=== PATIENT | female | born 1945 | race Caucasian/White ===

== ENCOUNTER 2018-05-24 10:32 | Inpatient (IN) | payer MEDICARE, SELFPAY ==
[2018-05-02 09:34] VITALS: BMI 25.2
[2018-05-24] VITALS (15 sets, daily range): BP systolic 91–133; BP diastolic 51–76; PULSE 61–78; RESP 13–20; TEMP 35.7–36.4; O2SAT 91–99; BMI 24.9
--- NOTE | 2018-05-24 | DI.RAD.S_ITS ---
PROCEDURE: XR PELVIS 1-2V INDICATIONS: INTRA OPERATIVE LEFT HIP TECHNIQUE: Intra-operative view of the pelvis and hip acquired. COMPARISON: [facility], CR, XR HIP W PEL IF DONE LT 2V, 05/24/2018, 15:37. FINDINGS: Bones: Intraoperative devices prior to placement of left arthroplasty prostheses are in expected positions. No fractures or suspicious bony lesions. Incidentally noted right hip arthroplasty Soft tissues: Overlying surgical retractors are present, along with other intraoperative changes. IMPRESSION: Expected intraoperative appearance. Dictated by: Grabiel Daniel M.D. on 05/24/2018 at 16:01 Approved by: Grabiel Daniel M.D. on 05/24/2018 at 16:01
--- NOTE | 2018-05-24 | DI.RAD.S_ITS ---
PROCEDURE: XR HIP W PEL IF DONE LT 2V INDICATIONS: TOTAL LEFT HIP TECHNIQUE: AP pelvis and lateral view of the left hip acquired. COMPARISON: [facility], CR, XR PELVIS WITH BILATERAL LATERAL HIPS, 04/10/2018, 14:02. [facility], CR, XR PELVIS 1-2V, 05/24/2018, 14:25. FINDINGS: Bones: Patient is status post bilateral hip arthroplasty, with hardware components in expected positions. The hip joint appears congruent. The visualized bony structures appear intact. Soft tissues: Overlying postoperative changes are noted. No suspicious soft tissue densities. IMPRESSION: Status post bilateral hip arthroplasties, most recently on the left. Dictated by: Yvonne Garcia M.D. on 05/24/2018 at 16:11 Approved by: Yvonne Garcia M.D. on 05/24/2018 at 16:12
--- NOTE | 2018-05-24 11:04 | SUR.OPER ---
Lateral on padded OR bed. Gel axillary roll. Arms secured on padded armboard with pillow supporting top arm. Padded hip positioner braces x4 - anterior and posterior chest and pelvis. Additional gel pad used anterior pelvis. Gel pad under bottom leg from knee to foot and secured with tape over sheet.
[2018-05-24] MEDS: VANCOMYCIN 1,000 MG/200 ML FROZ.PIGGY 200 MG IV (11:42)
[2018-05-24] MEDS: LACTATED RINGERS 1,000 ML 42 ML IV ×2 (11:43→14:56)
[2018-05-24] MEDS: PREGABALIN 75 MG CAPSULE PO (12:13)
[2018-05-24] MEDS: ACETAMINOPHEN 325 MG TABLET 975 MG PO ×2 (12:13→21:28)
[2018-05-24] MEDS: CELECOXIB 200 MG CAPSULE PO (12:13)
--- NOTE | 2018-05-24 13:05 | PM.PREOP ---
Pre-operative Note Interval Note Pre-op Check: History & Physical Reviewed by Physician and Exam Performed
--- NOTE | 2018-05-24 13:05 | PM.OP.1 ---
Operative Date/Time/Diagnoses Date of procedure: 05/24/18 Time of procedure: 13:31 Pre-op diagnosis: Left hip avascular necrosis with osteoarthritis Post-op diagnosis: same Procedure & Clinicians Procedure: Left total hip arthroplasty Same procedure as scheduled: Yes Indications: The patient has had progressively worsening left hip pain with radiographic changes consistent with arthritis. Non-operative management has failed and the patient has requested total hip replacement. The risks, benefits and alternatives to surgery were discussed with the patient prior to proceeding. Risks discussed included, but were not limited to, failure to relieve pain, leg length discrepancy, dislocation, stiffness, infection, nerve damage, deep venous thrombosis, pulmonary embolism, stroke, coma, heart attack, permanent paralysis and , as well as the potential need for eventual revision of the prosthetic. Surgeon: Mandy Cuevas Reed Press Feeder: Betty Torre Anesthesia Type: General Operative Notes Findings: Severe left hip osteoarthritis, adequate stability Closure Type: primary Specimen(s): none sent Implants & Drains: R3 54 mm cup with a neutral poly liner, size 8 standard offset anthology, -3 head Estimated Blood Loss (mL): 300 Blood products transfused: none Procedure in detail: The patient was brought to the operating room. Patient was carefully positioned in the supine position. Time-out was performed and antibiotics were given. Anesthesia was induced. The patient was seen in the pre-operative area, where the patient identified the left hip as the operative site and this was marked with my initials. The patient received pre-operative antibiotics and was taken to the operating room and placed on the operative table in the right lateral decubitus position after satisfactory anesthesia. A multimedia specialist out was performed. The left leg was prepared from the ankle to the iliac crest with ChloroPrep in the usual fashion and draped through sterile drapes. The hip was approached through an approximately 20 cm incision centered over the greater trochanter and curving gently posteriorly as it went proximally. This was carried sharply to the fascia matt, which was divided and retracted with a self retaining retractor. The trochanteric bursa was excised with care being taken to avoid the sciatic nerve, which was identified and protected throughout the case. The short external rotators were incised and the capsulomuscular flap was raised and tagged for later repair. The hip was dislocated, and a femoral neck osteotomy performed approximately 15 mm above the lesser trochanter. Retractors were placed around the femur. The canal was opened with a box cutting osteotome, followed by a T handled reamer and a lateralizing reamer. The chili pepper broach was then used, followed by sequential broaching until there was good stability of the broach in the femur. Retractors were placed to expose the acetabulum. The labrum and central soft tissues were removed. Reaming was performed initially going up in 2 mm increments, then 1 mm increments until good bite was obtained with an odd sized reamer. The cup 1 mm larger than the last reamer was then inserted using the appropriate anteversion guides. A trial neutral liner was placed. The broach was placed in the canal. A trial head and neck were then placed and the hip relocated and checked for leg length and stability. An intraoperative film confirmed the component position and no evidence of fracture. The patient was stable in the position of sleep, of squatting, and could be put through a range of motion with 45 degrees internal rotation without dislocation. At 90 degrees flexion, internal rotation to 70 was possible before dislocation. This was felt to be satisfactory and the appropriate components were opened, and the trials were removed. The acetabular liner was impacted into position. The final stem was then impacted into the prepared femoral canal. A brief Betadine soak was performed while trialing with head options. The hip was meticulously irrigated with normal saline. Finally the femoral head was impacted onto the stem. The acetabulum was cleared of all material and the hip relocated one final time. The capsulomuscular flap was then repaired to the greater trochanter though an awl hole using the tag sutures. The short external rotators were repaired with a black braided nylon. A deep drain was placed and brought out anteriorly. The fascia matt was closed with black braided nylon. The subcutaneous layer was closed with barbed sutures and SteriStrips. An Aquacel Ag dressing was applied and the patient was taken to recovery having tolerated the procedure well. Complications: none Condition: stable Disposition: Acute Care Plan for aftercare: The patient will be maintained on a standard total hip replacement protocol with weight bearing as tolerated and posterior hip precautions. The patient will receive aspirin and sequential compression devices for DVT prophylaxis. The patient will be discharged home when safe for the home environment.
[2018-05-24] MEDS: CEFAZOLIN 2 GM/100 ML FROZ.PIGGY IV ×2 (13:07→21:27)
--- NOTE | 2018-05-24 14:02 | SUR.OPER ---
UPON INITIAL INSPECTION OF PATIENT IT WAS NOTED THAT SHE HAD GREENISH AND BLUISH PURPLE DISCOLORED BRUISING ON UPPER EXREMITIES AND LOWER EXTREMITIES WELL SOME HEALING SCRAPES TO LEFT LOWER BACK AND HIP PRIOR TO INCISION. PATIENT STATED SHE FELL A COUPLE OF WEEKS AGO
[2018-05-24] MEDS: BUPIVACAINE 0.25% W/ EPI VIAL 50 ML INJ (14:16)
[2018-05-24] MEDS: BUPIVACAINE LIPOSOME 266 MG/20 ML VIAL INJ (14:16)
[2018-05-24] MEDS: SODIUM CHLORIDE IRRIG SOLUTION 250 ML, EPINEPHrine 1 MG IRR (14:47)
[2018-05-24] MEDS: POVIDONE-IODINE 15 ML, SODIUM CHLORIDE 0.9% 250 ML TOP (15:00)
--- NOTE | 2018-05-24 15:30 | CM.DANOTE ---
Call from BLAIR/Betty: Patient left message stating she will require SNF at discharge. Notified PA that patient will be assessed tomorrow for discharge planning needs.
[2018-05-24] MEDS: SODIUM CHLORIDE 0.9% 1,000 ML 100 ML IV (18:44)
[2018-05-24] MEDS: AMITRIPTYLINE 25 MG TABLET PO (21:28)
[2018-05-24] MEDS: ASPIRIN EC 81 MG TABLET PO (21:28)
[2018-05-24] MEDS: DOCUSATE 100 MG CAPSULE PO (21:28)
[2018-05-24] MEDS: OXYCODONE/ACETAMINOPHEN 5/325 TABLET 1 TAB PO (23:22)
[2018-05-25] VITALS (13 sets, daily range): BP systolic 102–141; BP diastolic 53–69; PULSE 56–77; RESP 15–16; TEMP 36–36.7; O2SAT 93–100
--- NOTE | 2018-05-25 04:12 | PC.NURSE ---
[place] Supervisor- Pt slept well throughout night, Voided at change of shift, scant amount of urine on bedpan. At 0245, voided qs, passed small amount of flatus. Left hip aquacel dressing CDI, CMS +, PPP. Left hemovac drain in place. Ice pack on/off throughout night. Hip precautions in place and instructed to pt. Also instructed use of incentive spirometer and pt able to return demonstrate. IVF infusing well to left FA PIV. O2 sat 98-100% on 2L NC, weaned to 1L NC, remained on continuous O2 monitoring throughout night. Rates 4/10 aching/soreness to left hip area, Percocet prn given X1 at 2330 with good effect. High fall risk precautions in place, bed alarm on.
[2018-05-25] MEDS: SODIUM CHLORIDE 0.9% 1,000 ML 100 ML IV (05:11)
[2018-05-25] MEDS: CEFAZOLIN 2 GM/100 ML FROZ.PIGGY IV (05:11)
[2018-05-25] MEDS: OXYCODONE/ACETAMINOPHEN 5/325 TABLET 1 TAB PO (05:16)
[2018-05-25 05:28] LABS: Hematocrit 28.1 % (36-46); Hemoglobin 9.4 g/dL (12.0-16.0)
[2018-05-25] MEDS: DOCUSATE 100 MG CAPSULE PO ×2 (08:33→20:07)
[2018-05-25] MEDS: ASPIRIN EC 81 MG TABLET PO ×2 (08:33→20:07)
[2018-05-25] MEDS: LISINOPRIL 20 MG TABLET PO (08:35)
[2018-05-25] MEDS: ACETAMINOPHEN 325 MG TABLET 975 MG PO ×3 (08:36→21:42)
[2018-05-25] MEDS: OXYCODONE IR 5 MG TABLET PO ×5 (08:41→22:33)
--- NOTE | 2018-05-25 09:37 | PM.PNPO.1 ---
Subjective Date Patient Seen: 05/25/18 Time Patient Seen: 09:37 Interval history: Pt in bed. Pain tolerable with pain medications. S/P LT NAT by Dr. Cuevas. PD 1. Confusion about if patient wanted to go to SNF after d/c form hospital or not. Patient lives alone but has friends around. Hx of RT NAT years ago. Pt feels that she can go home in few days and does nto need a SNF. Exam Vital Signs (past 8 hours): - 05/25/18 04:16 05/25/18 04:22 05/25/18 04:40 Temperature Pulse Rate Respiratory Rate Blood Pressure Pulse Oximetry 100 99 97 05/25/18 05:20 05/25/18 05:59 05/25/18 06:19 Temperature 96.8 F L Pulse Rate 56 L Respiratory Rate 16 Blood Pressure 102/56 L Pulse Oximetry 96 98 95 05/25/18 08:10 Temperature 97.3 F L Pulse Rate 60 Respiratory Rate 16 Blood Pressure 110/61 Pulse Oximetry 97 Oxygen Delivery Method Room Air Oxygen Flow Rate 0 Narrative Exam Narrative: Pt in bed. A&O x3. Appears comfortable. Hemovac drain in. Left hip Aquacel dressing clean, dry and intact. Full sensation in left leg and foot. Mod swelling in left thigh. 5/5 left ankle strength. Objective Labs Result Diagrams: 05/25/18 05:12 Labs: Laboratory Results - last 24 hr 05/25/18 05:12 Hgb 9.4 L Hct 28.1 L Assessment & Plan Post-op (1) Postoperative anemia due to acute blood loss: Problem details: Iron and Vt C ordered. tomorrow to monitor. Current Visit: Yes Status: Acute Postoperative Procedures Operation Date: 05/24/18 12:15 Actual Procedures Side Surgeon p Total Hip Arthroplasty Left Mandy Cuevas MD S/P LT NAT. PD 1. Pt to amabulate with PT today. Continue pain medication as needed. DVT prophylaxis with ASA and SCDs. Possible home in the next day or two. [facility] patient and has d/c medications already. Time Spent With Patient less than 15 minutes Quality VTE Deep Vein Thrombosis/Pulmonary Embolism Present on Admission: No
--- NOTE | 2018-05-25 09:55 | PT.IPTN ---
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) Presence of right artificial hip joint (05/24/18) Surgery Performed Operation Date: 05/24/18 12:15 Actual Procedures p Total Hip Arthroplasty(Left) - Mandy Cuevas MD Physical Therapy Treatment Note M2 PT-IP Current Condition Start: 05/25/18 12:34 Freq: NEEDED Status: Active Protocol: Document 05/25/18 09:55 AB (Rec: 05/25/18 13:15 AB [id number]) Physical Therapy Current Condition Current Condition Evaluation Date 05/25/18 Treatment Diagnosis s/p L NAT Onset Date 05/24/18 Precautions Posterior Hip Precautions No Hip Flexion > 90 degrees No Hip Internal Rotation No Hip Adduction Other Precautions falls Weight Bearing Status Weight Bearing Status Weight Bear as Tolerated M3 PT-IP Subjective Start: 05/25/18 12:34 Freq: NEEDED Status: Active Protocol: Document 05/25/18 09:55 AB (Rec: 05/25/18 13:15 AB [id number]) Subjective Physical Therapy Visit Type Type Initial Evaluation Visit Start Time 09:55 Visit Stop Time 10:45 Total Visit Minutes 50 Number of COAL CARRIER Visits 0 Physical Therapy Visit Comments Patient Comments pt agreeable to do therapy Therapy Pain Assessment Pain When Pain Assessed During Mobility Pain Present Pain Present Pain Reported Location Left Hip Intensity 4 Scale Used Numeric (1 - 10) Pain Management Techniques Apply Cold Timing of Activity with Medications M4 PT-IP Mobility and Gait Start: 05/25/18 12:34 Freq: NEEDED Status: Active Protocol: Document 05/25/18 09:55 AB (Rec: 05/25/18 13:15 AB [id number]) PT-Bed Mobility Assessment Rolling Level of Assist Contact Guard Assistance Supine to Sit Supine to Sit Contact Guard Assistance PT-Transfer Assessment Sit to and From Stand Sit to and from Stand Minimal Assistance Equipment Transfer Assistive Device Gait Belt Front Wheeled Walker Transfers Transfer Destination Chair Toilet Transfer Technique pt ambulated to the toilet and to chair Transfer Ability Level of Assist Minimal Assistance Moderate Assistance 1 Person Assistance Gait Assessment Gait Gait Assistance Required: Minimum Assistance Moderate Assistance Distance (Feet) (feet) 20 Able to Maintain Weight Bearing Status Yes During Gait Assistive Devices Assistive Device Gait Belt Front Wheeled Walker Orthotic/Prosthetic Devices or Brace: No Gait Deviations General Gait Pattern Antalgic Decreased Stride Length Decreased Feet Clearance Flexed Trunk Step-to Gait Factors Limiting Gait Function Factors Limiting Gait Function Decreased Activity Tolerance Decreased Strength Limited Range of Motion Pain Poor Balance Poor Safety Awareness Comments Gait Comments pt with increase L knee flexion and internal rotation during standing and ambulation . Requires max cues for safety and to adhere to hip precautions PT-Balance Assessment Sitting Balance and Reactions Static Sitting Balance Ability Good Dynamic Sitting Balance Ability Good Standing Balance and Reactions Static Standing Balance Ability Fair Dynamic Standing Balance Ability Fair Device Used FWW M5 PT-IP Objective Assessments Start: 05/25/18 12:34 Freq: NEEDED Status: Active Protocol: Document 05/25/18 09:55 AB (Rec: 05/25/18 13:15 AB [id number]) Orientation Orientation/Cognition Level of Alertness Alert Orientation Name Age Birthday Month Date Year Day of Week Place Situation Language Function Ability Hard of Hearing Safety Awareness Decreased Safety Awareness Memory Description Short Term Impaired Expeller Operator Impaired Gross Range of Motion Lower Extremity ROM Assessment Bilaterally Impaired Impairments decrease bialteral knee extension Strength Lower Extremity Strength Assessment Bilaterally Impaired Hip 4-/5 Knee 4-/5 M6 PT-IP Treatment Start: 05/25/18 12:34 Freq: NEEDED Status: Active Protocol: Document 05/25/18 09:55 AB (Rec: 05/25/18 13:15 AB [id number]) Physical Therapy Treatment Education Education Provided Precautions Weight Bearing Status Post-Op Packet Safety Other Treatments Other Treatment Performed pt continues to require cues to maintain hip precuations despite education provided. M7 PT-IP Assessment and Plan Start: 05/25/18 12:34 Freq: NEEDED Status: Active Protocol: Document 05/25/18 09:55 AB (Rec: 05/25/18 13:15 AB [id number]) PT Summary Assessment and Plan Potential Rehabilitation Potential Fair Status of Condition at Evaluation Evolving Summary Impairments Pain ROM Strength Balance Coordination Sensation Tone Cognition Bed Mobility Transfers Gait Activity Tolerance Assessment Summary pt requires 1 person assist with mobility and max cues for safety. pt does not have a constant person assist her at home and at this time require 24/7 assist with all tasks. pt may require SNF rehab. Goals Bed Mobility Goal Standby Assistance Transfer Goal Standby Assistance Front Wheeled Walker Gait Goal Standby Assistance Front Wheel Walker Gait Distance 100 Other Goals up/down 2 steps using R rail ascending SBA Days to Meet Goals 3 Frequency of Treatment Frequency Of Treatment Twice a Day Treatment Plan Physical Therapy Treatment Plan Bed Mobility Training Transfer Training Gait Training Therapeutic Exercise Balance Retraining Post Op Education Discharge Planning Hot or Cold Pack Neuromuscular Re-ed Coordination Retraining Manual Therapy Other Recommendations and Next Treatment ambulation, hip precaution Focus education, stair climbing Recommendations To Nursing Amount of Assist Needed 1 Person Assist Discharge Recommendations PT Discharge Recommendations Home with 04/06 Assist Home Health SNF Rehab Outpatient PT Other Discharge Recommendations SNF vs 24 assist/ outpt PT/ homehealth PT
[2018-05-25] MEDS: ASCORBIC ACID 500 MG TABLET PO (10:10)
[2018-05-25] MEDS: FERROUS SULFATE 325 MG TABLET PO (10:10)
--- NOTE | 2018-05-25 12:39 | PT.IPTN ---
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) Presence of right artificial hip joint (05/24/18) Surgery Performed Operation Date: 05/24/18 12:15 Actual Procedures p Total Hip Arthroplasty(Left) - Mandy Cuevas MD Physical Therapy Treatment Note M2 PT-IP Current Condition Start: 05/25/18 12:34 Freq: NEEDED Status: Active Protocol: Document 05/25/18 09:55 AB (Rec: 05/25/18 13:15 AB [id number]) Physical Therapy Current Condition Current Condition Evaluation Date 05/25/18 Treatment Diagnosis s/p L NAT Onset Date 05/24/18 Precautions Posterior Hip Precautions No Hip Flexion > 90 degrees No Hip Internal Rotation No Hip Adduction Other Precautions falls Weight Bearing Status Weight Bearing Status Weight Bear as Tolerated M3 PT-IP Subjective Start: 05/25/18 12:34 Freq: NEEDED Status: Active Protocol: Document 05/25/18 13:16 AB (Rec: 05/25/18 13:25 AB [id number]) Subjective Physical Therapy Visit Type Type Treatment Note Visit Start Time 12:39 Visit Stop Time 12:57 Total Visit Minutes 18 Number of OCEAN EXPORT COORDINATOR Visits 0 Physical Therapy Visit Comments Patient Comments pt requested to use the toilet and go back to bed Therapy Pain Assessment Pain When Pain Assessed At Rest Pain Present Pain Present Pain Reported Location Left Hip Intensity 3 Scale Used Numeric (1 - 10) Pain Management Techniques Apply Cold Re-positioning M4 PT-IP Mobility and Gait Start: 05/25/18 12:34 Freq: NEEDED Status: Active Protocol: Document 05/25/18 13:16 AB (Rec: 05/25/18 13:25 AB [id number]) PT-Bed Mobility Assessment Sit to Supine Sit to Supine Standby Assistance PT-Transfer Assessment Sit to and From Stand Sit to and from Stand Minimal Assistance Moderate Assistance Equipment Transfer Assistive Device Gait Belt Front Wheeled Walker Orthotic/Prosthetic Devices or Brace: No Gait Assessment Gait Gait Assistance Required: Minimum Assistance Distance (Feet) (feet) 25 Able to Maintain Weight Bearing Status Yes During Gait Assistive Devices Assistive Device Gait Belt Front Wheeled Walker Orthotic/Prosthetic Devices or Brace: No Gait Deviations General Gait Pattern Antalgic Decreased Stride Length Decreased Feet Clearance Flexed Trunk Step-to Gait Factors Limiting Gait Function Factors Limiting Gait Function Decreased Activity Tolerance Decreased Strength Difficulty Following Directions Pain Poor Balance Poor Safety Awareness Comments Gait Comments pt ambulated towards the bed and midway stated that she needs to use the toilet and ambulated towards the toilet ~ 20 ft using FWW min A. pt required mod A for controlled descent to the toilet and max cues for maintain hip precautions. pt required mod A for sit to stand from the toilet using grab bars. pt ambulated towards the sink using FWW min A. M5 PT-IP Objective Assessments Start: 05/25/18 12:34 Freq: NEEDED Status: Active Protocol: Document 05/25/18 09:55 AB (Rec: 05/25/18 13:15 AB [id number]) Orientation Orientation/Cognition Level of Alertness Alert Orientation Name Age Birthday Month Date Year Day of Week Place Situation Language Function Ability Hard of Hearing Safety Awareness Decreased Safety Awareness Memory Description Short Term Impaired Group Home Impaired Gross Range of Motion Lower Extremity ROM Assessment Bilaterally Impaired Impairments decrease bialteral knee extension Strength Lower Extremity Strength Assessment Bilaterally Impaired Hip 4-/5 Knee 4-/5 M6 PT-IP Treatment Start: 05/25/18 12:34 Freq: NEEDED Status: Active Protocol: Document 05/25/18 13:16 AB (Rec: 05/25/18 13:25 AB [id number]) Physical Therapy Treatment Other Treatments Other Treatment Performed reviewed hip precautions again and pt continues to require max cues M7 PT-IP Assessment and Plan Start: 05/25/18 12:34 Freq: NEEDED Status: Active Protocol: Document 05/25/18 13:16 AB (Rec: 05/25/18 13:25 [id number]) PT Summary Assessment and Plan Potential Rehabilitation Potential Fair Summary Impairments Pain ROM Strength Balance Coordination Sensation Tone Cognition Bed Mobility Transfers Gait Activity Tolerance Progress Towards Goals Slow Progress due to Medical Issues Slow Progress due to Activity Tolerance Assessment Summary pt requiring one person assist with mobility and max cues for safety and to maintain hip precautions. at this time pt requires 24/7 assistance and may require SNF rehab. Goals Bed Mobility Goal Standby Assistance Transfer Goal Standby Assistance Front Wheeled Walker Gait Goal Standby Assistance Front Wheel Walker Gait Distance 100 Other Goals up/down 2 steps using R rail ascending SBA Days to Meet Goals 3 Frequency of Treatment Frequency Of Treatment Twice a Day Treatment Plan Physical Therapy Treatment Plan Bed Mobility Training Transfer Training Gait Training Therapeutic Exercise Balance Retraining Post Op Education Discharge Planning Hot or Cold Pack Neuromuscular Re-ed Coordination Retraining Manual Therapy Other Recommendations and Next Treatment ambulation, hip precaution Focus education, stair climbing Recommendations To Nursing Amount of Assist Needed 1 Person Assist Discharge Recommendations PT Discharge Recommendations Home with 24/ Assist Home Health SNF Rehab Outpatient PT Other Discharge Recommendations SNF vs 04/06 assist/ outpt PT/ homehealth PT
--- NOTE | 2018-05-25 15:45 | OT.IP.EVAL ---
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) Presence of right artificial hip joint (05/24/18) Surgery Performed Operation Date: 05/24/18 12:15 Actual Procedures p Total Hip Arthroplasty(Left) - Mandy Cuevas MD Past Medical History (Last Updated 05/25/18 @ 09:41 by Betty Torre PA-C) Postoperative anemia due to acute blood loss (Acute) HTN (hypertension) (Acute) Surgical History (Last Reviewed 05/24/18 @ 09:20 by Betty Lynch RN) History of arthroplasty of right hip (Acute) History of bilateral knee arthroplasty (Acute) Hx of tonsillectomy (Acute) Occupational Therapy Inpatient Evaluation/Re-Eval M1 PT/OT-IP Prior Functional Status Start: 05/25/18 12:34 Freq: NEEDED Status: Active Protocol: Document 05/25/18 09:55 AB (Rec: 05/25/18 13:15 AB [id number]) Medical Review Prior Functional Status Medical History Reviewed Yes Communication able to make needs known Mobility and Gait pt staed that she is independent with all mobilities and ambulation without AD but has been using a FWW for 2-4 weeks due to hip pain Social History Household Members none Living Arrangements House Number of Floors (Floors) One Floor Number of Stairs To Enter/Railing? 2 steps to enter with R rail ascending Home Environment Standard Height Toilet Tub/Shower Home Equipment Front Wheel Walker Quad Cane Straight Cane Raised Toilet Seat Without Armrests Hand Held Shower Grab Bars In Shower Employment Status Retired Additional Social History Comment pt stated that she has friends and neighbors that will assist her at home and if needed, somebody can stay with her. M2 OT-IP Current Condition Start: 05/25/18 15:20 Freq: Status: Active Protocol: Document 05/25/18 02:55 ADH (Rec: 05/25/18 15:26 ADH [email or web address]) Occupational Therapy Current Condition Current Condition Evaluation Date 05/25/18 Treatment Diagnosis L total hip Diagnosis Onset Date 05/24/18 Post Operative Precautions Posterior Hip Precautions No Hip Flexion > 90 degrees No Hip Internal Rotation No Hip Adduction Other Precautions falls Weight Bearing Status Weight Bearing Status Weight Bear as Tolerated M3 OT- IP Subjective and Pain Start: 05/25/18 15:20 Freq: Status: Active Protocol: Document 05/25/18 02:55 ADH (Rec: 05/25/18 15:26 ADH [email or web address]) OT- Subjective Occupational Therapy Visit Type Type Initial Evaluation Visit Start Time 02:08 Visit Stop Time 02:55 Total Visit Minutes 47 OT Pain Assessment Pain When Pain Assessed During Mobility Pain Present Pain Present Denied Pain M4 OT- IP ADL's Start: 05/25/18 15:20 Freq: Status: Active Protocol: Document 05/25/18 02:55 ADH (Rec: 05/25/18 15:26 ADH [email or web address]) OT [id number] General Evaluation Self-Feeding Ability Independent OT ADL-Grooming General Evaluation Grooming Ability Independent OT ADL-Oral Care General Eval Oral Care Ability Independent OT ADL-Dressing General Eval Upper Body Dressing Ability Independent Lower Body Dressing Ability Maximum Assistance Areas Needing Assistance Underpants/Brief Socks Shoes Comments OT Dressing Comments Pt unable to perform LB dressing d/t posterior hip precautions, will need adaptive equipment. Pt reports having some at home, provided shoe horn. Pt with good verbal understanding of techniques r/t same surgery on other hip 6 years prior. OT ADL-Toileting General Evaluation Toileting Ability Standby Assistance M5 OT- IP IADL's Start: 05/25/18 15:20 Freq: Status: Active Protocol: Document 05/25/18 02:55 ADH (Rec: 05/25/18 15:45 ADH [email or web address]) OT-Instrumental Activities of Daily Living Driving Driving Comments Pt recommended to hold off on driving until cleared by . M6 OT- IP Functional Cognition Start: 05/25/18 15:20 Freq: Status: Active Protocol: Document 05/25/18 02:55 ADH (Rec: 05/25/18 15:26 ADH [email or web address]) Cognitive Factors Limiting Selfcare Function Cognitive Ability Level of Alertness Alert Patient Orientation Name Date Place Situation Attention Span Ability Capable of Focused Attention Ability to Follow Commands Able to Follow Multi-Step Commands Safety Awareness Decreased Recall of Precautions Decreased Ability to Apply Precautions Underestimates Need for Assistance Cognitive Comments Cognitive Assessment Comments Pt able to recall 2/3 posterior hip precautions. Pt with poor understanding of hip precautions as they related to her familiar movements, she kept stating but I am so used to leaning forward! and had difficulty problem solving a new movement pattern. Pt tends to downplay current needs and dismiss therapist's concerns re: functional transfers in the home. OT- Vision and Hearing OT- Hearing Assessment OT- Hearing Assessment WFL OT- Vision Assessment Visual Acuity Glasses For Reading M7 OT- IP Mobility and Balance Start: 05/25/18 15:20 Freq: Status: Active Protocol: Document 05/25/18 02:55 ADH (Rec: 05/25/18 15:26 ADH [email or web address]) OT- Bed Mobility Assessment Rolling Level of Assistance Minimal Assistance Supine to Sit Supine to Sit Assist Contact Guard Assistance Sit to Supine Sit to Supine Assist Contact Guard Assistance Scooting Scooting to Edge of Bed Contact Guard Assistance Scooting Up and Down in Bed Contact Guard Assistance OT-Transfer Assessment Sit to and From Stand Sit to and from Stand Minimal Assistance Technique Transfer Destination Bed Chair Toilet Devices Transfer Assistive Devices Gait Belt Front Wheeled Walker Comments Mobility Comments Once on her feet pt needed max cues for correct gait pattern , continues to carry L foot high and only push off on toes . M8 OT- IP Objective Assessments Start: 05/25/18 15:20 Freq: Status: Active Protocol: Document 05/25/18 02:55 ADH (Rec: 05/25/18 15:45 ADH [email or web address]) OT Gross Range of Motion Upper Extremity Range of Motion Assessment Within Functional Limits OT Strength Upper Extremity Strength Assessment Within Functional Limits OT- Coordination Assessment Upper Extremity Finger Tapping Test Within Functional Limits M9 OT- IP Assessment and Plan Start: 05/25/18 15:20 Freq: Status: Active Protocol: Document 05/25/18 02:55 ADH (Rec: 05/25/18 15:45 ADH [email or web address]) OT Summary Assessment and Plan Potential Rehabilitation Potential Excellent Analytic Complexity at Evaluation Low Summary OT Impairments Pain Range of Motion Progress Towards Goals Progressing Toward Goals Treatment Plan OT Treatment Plan ADL Training Functional Mobility Patient/Family Education Discharge Planning Discharge Recommendations OT Discharge Recommendations Home with Assistance
--- NOTE | 2018-05-25 16:44 | CM.DANOTE ---
DCP/Assessment: Reviewed chart this AM. Patient is a 73yr old female admitted to . for elective left NAT performed on 05-24-[address] Cuevas. PCP not listed. Primary payor is 1)[facility]/Medicare. Received fax from payor requesting d/c planning evaluation prior to patient's discharge from I.. COUNTER HAND met patient briefly today to discuss d/c plan. Patient had not yet been evaluated by therapy. Patient reports that she plans to go home at time of d/c. Patient indicates that she has outpatient therapy arranged to begin on Sunday05-29-18. Notified patient of concern from payor re: d/c plan. Patient reports that her neighbor probably called the orthopedic office concerned that she would be discharged too soon? Patient reports that she does live alone [place] and that she does not have any concerns about returning home. Notified patient that no discharge ordered for today and that CM team would follow up on 05-26-18. P: Pending. Anticipate possible home with HH vs. SNF. CM meat service team member to call [facility] [employer] Driver with d/c plan when available. Contact is: Tawanna Birdshaquille # [phone]. JEB Velazco Discharge Planning/Care Management CM Discharge Assessment Start: 05/25/18 16:41 Freq: Status: Active Protocol: Document 05/25/18 16:41 KJS (Rec: 05/25/18 16:44 KJS [id number]) Discharge Planning Assessment Assigned Hospitalist Physician JEB/Gladys History Provided By Patient Has Patient been admitted in last 30 No days? Prior Living Arrangements House Household Members none Is patient alert and oriented? Yes Caregiver for Another No DME Already Rented / Owned FWW / Walker Community Services Needed at Discharge Physical Therapy Review Status In Process Next Review Type Continued Stay Review
[2018-05-25] MEDS: SODIUM CHLORIDE 0.9% FLUSH 10 ML IV ×2 (20:09→23:30)
[2018-05-25] MEDS: AMITRIPTYLINE 25 MG TABLET PO (21:42)
[2018-05-26 01:10] VITALS: BP 127/63; PULSE 84; RESP 14; TEMP 36.7; O2SAT 96
[2018-05-26] MEDS: OXYCODONE IR 5 MG TABLET PO ×7 (01:24→23:35)
[2018-05-26 05:48] LABS: Hematocrit 28.4 % (36-46); Hemoglobin 9.4 g/dL (12.0-16.0)
[2018-05-26 06:02] VITALS: BP 138/78; PULSE 90; RESP 16; TEMP 36.8; O2SAT 96
--- NOTE | 2018-05-26 06:15 | PC.NURSE ---
Supervisor Sewer System- Pt slept on/off throughout night, repositioned frequently. Stated having mid back pain from being in bed so much. Warm blanket given, repositioning, and medicated with prn Oxycodone at 0130 & 0450. Pt c/o left hip aching 3/10, ice applied on/off. CMS+, 2+ edema noted to left thigh and hip area. Left hip aquacel dressing covering surgical site CDI. Gauze and tegaderm dressing covering old hemovac site CDI. Calf SCD's replaced for night to BLE. No other voiced concerns, call light with in reach. High fall risk precautions in place.
[2018-05-26 08:31] VITALS: BP 112/63; PULSE 79; RESP 14; TEMP 36.4; O2SAT 95
[2018-05-26] MEDS: ASCORBIC ACID 500 MG TABLET PO (08:48)
[2018-05-26] MEDS: ASPIRIN EC 81 MG TABLET PO ×2 (08:48→20:22)
[2018-05-26] MEDS: FERROUS SULFATE 325 MG TABLET PO (08:49)
[2018-05-26] MEDS: ACETAMINOPHEN 325 MG TABLET 975 MG PO ×3 (08:49→20:22)
[2018-05-26] MEDS: DOCUSATE 100 MG CAPSULE PO ×2 (08:49→20:21)
--- NOTE | 2018-05-26 09:49 | PC.NURSE ---
Cee anticipates being released to home later today to care of friends. She is taking oxycodone for pain PRN and scheduled acetaminophen. She is performing with PT. VSS. Rachna de los santos. clean/dry/intact.
--- NOTE | 2018-05-26 11:06 | PM.PN.1 ---
Exam Vital Signs (past 8 hours): - 05/26/18 06:02 05/26/18 08:31 Temperature 98.2 F 97.5 F L Pulse Rate 90 79 Respiratory Rate 16 14 Blood Pressure 138/78 H 112/63 Pulse Oximetry 96 95 Oxygen Delivery Method Room Air Oxygen Flow Rate 0 Objective Labs Result Diagrams: 05/26/18 05:00 Labs: Laboratory Results - last 24 hr 05/26/18 05:00 Hgb 9.4 L Hct 28.4 L Assessment & Plan Plan: Assessment/Plan Narrative: Patient is admitted after surgery. Patient has been stable and progressing with physical therapy. Patient is neurovascularly intact on exam. Patient has no signs or symptoms of DVT. Patient's dressing is clean dry and intact. Will continue PT training and possible d/c tomorrow. Quality VTE Deep Vein Thrombosis/Pulmonary Embolism Present on Admission: No
--- NOTE | 2018-05-26 11:49 | PT.IPTN ---
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) Presence of right artificial hip joint (05/24/18) Surgery Performed Operation Date: 05/24/18 12:15 Actual Procedures p Total Hip Arthroplasty(Left) - Mandy Cuevas MD Physical Therapy Treatment Note M2 PT-IP Current Condition Start: 05/25/18 12:34 Freq: NEEDED Status: Active Protocol: Document 05/25/18 09:55 AB (Rec: 05/25/18 13:15 AB [id number]) Physical Therapy Current Condition Current Condition Evaluation Date 05/25/18 Treatment Diagnosis s/p L NAT Onset Date 05/24/18 Precautions Posterior Hip Precautions No Hip Flexion > 90 degrees No Hip Internal Rotation No Hip Adduction Other Precautions falls Weight Bearing Status Weight Bearing Status Weight Bear as Tolerated M3 PT-IP Subjective Start: 05/25/18 12:34 Freq: NEEDED Status: Active Protocol: Document 05/26/18 10:57 CLB (Rec: 05/26/18 11:49 CLB [id number]) Subjective Physical Therapy Visit Type Type Treatment Note Visit Start Time 10:57 Visit Stop Time 11:20 Total Visit Minutes 23 Number of TRANSPLANT REGISTERED NURSE Visits 1 Physical Therapy Visit Comments Patient Comments Pt willing to ambulate. Therapy Pain Assessment Pain When Pain Assessed During Mobility Pain Present Pain Present Pain Reported Location Left Hip Intensity 3 Scale Used Numeric (1 - 10) Pain Management Techniques Apply Cold Timing of Activity with Medications M4 PT-IP Mobility and Gait Start: 05/25/18 12:34 Freq: NEEDED Status: Active Protocol: Document 05/26/18 10:57 CLB (Rec: 05/26/18 11:49 CLB [id number]) PT-Bed Mobility Assessment Rolling Level of Assist Contact Guard Assistance Supine to Sit Supine to Sit Contact Guard Assistance Scooting Scooting to Edge of Bed Contact Guard Assistance PT-Transfer Assessment Sit to and From Stand Sit to and from Stand Minimal Assistance Equipment Transfer Assistive Device Gait Belt Front Wheeled Walker Orthotic/Prosthetic Devices or Brace: No Transfers Transfer Destination Chair Transfer Technique after ambulation Transfer Ability Level of Assist Contact Guard Assistance Minimal Assistance Gait Assessment Gait Gait Assistance Required: Contact Guard Assist Distance (Feet) (feet) 140 Able to Maintain Weight Bearing Status Yes During Gait Assistive Devices Assistive Device Gait Belt Front Wheeled Walker Orthotic/Prosthetic Devices or Brace: No Gait Deviations General Gait Pattern Antalgic Decreased Stride Length Decreased Feet Clearance Flexed Trunk Step-to Gait Factors Limiting Gait Function Factors Limiting Gait Function Decreased Activity Tolerance Decreased Strength Difficulty Following Directions Pain Poor Balance Poor Safety Awareness Comments Gait Comments Pt increased gait to ~140 ft in [place]. PT-Balance Assessment Sitting Balance and Reactions Static Sitting Balance Ability Good Dynamic Sitting Balance Ability Good Standing Balance and Reactions Static Standing Balance Ability Fair Dynamic Standing Balance Ability Fair Device Used FWW M5 PT-IP Objective Assessments Start: 05/25/18 12:34 Freq: NEEDED Status: Active Protocol: Document 05/25/18 09:55 AB (Rec: 05/25/18 13:15 AB [id number]) Orientation Orientation/Cognition Level of Alertness Alert Orientation Name Age Birthday Month Date Year Day of Week Place Situation Language Function Ability Hard of Hearing Safety Awareness Decreased Safety Awareness Memory Description Short Term Impaired Marketing Automation Analyst Impaired Gross Range of Motion Lower Extremity ROM Assessment Bilaterally Impaired Impairments decrease bialteral knee extension Strength Lower Extremity Strength Assessment Bilaterally Impaired Hip 4-/5 Knee 4-/5 M6 PT-IP Treatment Start: 05/25/18 12:34 Freq: NEEDED Status: Active Protocol: Document 05/26/18 10:57 CLB (Rec: 05/26/18 11:49 CLB [id number]) Physical Therapy Treatment Exercises Exercises Ankle Pumps Gluteal Sets Quad Sets Education Education Provided Precautions Weight Bearing Status Post-Op Packet Safety Other Treatments Other Treatment Performed Pt recalled 2/3 precautions but continues to need cues to put leg out before sitting and standing. M7 PT-IP Assessment and Plan Start: 05/25/18 12:34 Freq: NEEDED Status: Active Protocol: Document 05/26/18 10:57 CLB (Rec: 05/26/18 11:49 CLB [id number]) PT Summary Assessment and Plan Summary Impairments Pain ROM Strength Balance Coordination Sensation Tone Cognition Bed Mobility Transfers Gait Activity Tolerance Assessment Summary Pt requiring less assist with bed mobility but needs Min A sit-stand and cues for leg placement. Pt has friend that will stay with her once she d/ c home. Goals Bed Mobility Goal Standby Assistance Transfer Goal Standby Assistance Front Wheeled Walker Gait Goal Standby Assistance Front Wheel Walker Gait Distance 100 Other Goals up/down 2 steps using R rail ascending SBA Frequency of Treatment Frequency Of Treatment Twice a Day Treatment Plan Physical Therapy Treatment Plan Bed Mobility Training Transfer Training Gait Training Therapeutic Exercise Balance Retraining Post Op Education Discharge Planning Hot or Cold Pack Neuromuscular Re-ed Coordination Retraining Manual Therapy Other Recommendations and Next Treatment hip precaution education, Focus stair climbing and caregiver training before d/c if going home. Recommendations To Nursing Amount of Assist Needed 1 Person Assist Discharge Recommendations PT Discharge Recommendations Home with 24/ Assist Home Health SNF Rehab Outpatient PT Other Discharge Recommendations SNF vs 24/ assist/ outpt PT/ homehealth PT
[2018-05-26] MEDS: SODIUM CHLORIDE 0.9% FLUSH 10 ML IV ×2 (13:53→20:22)
--- NOTE | 2018-05-26 14:39 | CM.DPC ---
Addendum entered by JEB Cohen 05/26/18 14:49: ADD: SW called pt's [facility] JEANETTE Stacy ([phone]) and left msg with tentative d/c plan of home with HH. BF Original Note: DCP Cont: Per PT, pt is making progress and may continue to progress for home with neighbor support and HH vs possible SNF. SW met bedside with pt and explained role and pt confirmed that she feels she is making progress and still somewhat painful but seems to be more under control. Pt states that she plans to d/c home and has a hx of HH when she lived in [place] and requesting HH at d/c SW provided the HH Choice List and preference is [facility]. SW confirmed pt's address is different than on facesheet and is [address] [place] [address] [address], [place] [address]. JERAMIE called [facility] with new referral and faxed clinicals to liadorie Horan's fax to review. Plan: JERAMIE to follow for [facility] review of pt and need for F2F and orders at d/c if pt is safe to d/c home with [facility]. JEB Cohen
--- NOTE | 2018-05-26 16:08 | PT.IPTN ---
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) Presence of right artificial hip joint (05/24/18) Surgery Performed Operation Date: 05/24/18 12:15 Actual Procedures p Total Hip Arthroplasty(Left) - Mandy Cuevas MD Physical Therapy Treatment Note M2 PT-IP Current Condition Start: 05/25/18 12:34 Freq: NEEDED Status: Active Protocol: Document 05/25/18 09:55 AB (Rec: 05/25/18 13:15 AB [id number]) Physical Therapy Current Condition Current Condition Evaluation Date 05/25/18 Treatment Diagnosis s/p L NAT Onset Date 05/24/18 Precautions Posterior Hip Precautions No Hip Flexion > 90 degrees No Hip Internal Rotation No Hip Adduction Other Precautions falls Weight Bearing Status Weight Bearing Status Weight Bear as Tolerated M3 PT-IP Subjective Start: 05/25/18 12:34 Freq: NEEDED Status: Active Protocol: Document 05/26/18 14:25 CLB (Rec: 05/26/18 16:08 CLB [id number]) Subjective Physical Therapy Visit Type Type Treatment Note Visit Start Time 14:25 Visit Stop Time 14:55 Total Visit Minutes 30 Number of PIPE RACKER Visits 2 Physical Therapy Visit Comments Patient Comments Pt agreeable to do therapy. Therapy Pain Assessment Pain When Pain Assessed During Mobility Pain Present Pain Present Pain Reported Location Back Intensity 4 Scale Used Numeric (1 - 10) M4 PT-IP Mobility and Gait Start: 05/25/18 12:34 Freq: NEEDED Status: Active Protocol: Document 05/26/18 14:25 CLB (Rec: 05/26/18 16:08 CLB [id number]) PT-Bed Mobility Assessment Rolling Level of Assist Contact Guard Assistance Supine to Sit Supine to Sit Contact Guard Assistance Sit to Supine Sit to Supine Minimal Assistance Scooting Scooting to Edge of Bed Contact Guard Assistance PT-Transfer Assessment Sit to and From Stand Sit to and from Stand Minimal Assistance Equipment Transfer Assistive Device Gait Belt Front Wheeled Walker Orthotic/Prosthetic Devices or Brace: No Transfers Transfer Destination Chair Transfer Technique after ambulation Transfer Ability Level of Assist Contact Guard Assistance Minimal Assistance Gait Assessment Gait Distance (Feet) (feet) 50 Able to Maintain Weight Bearing Status Yes During Gait Assistive Devices Assistive Device Gait Belt Front Wheeled Walker Orthotic/Prosthetic Devices or Brace: No Gait Deviations General Gait Pattern Antalgic Decreased Stride Length Decreased Feet Clearance Flexed Trunk Step-to Gait Factors Limiting Gait Function Factors Limiting Gait Function Decreased Activity Tolerance Decreased Strength Difficulty Following Directions Pain Poor Balance Poor Safety Awareness Comments Gait Comments Pt fatigued with gait due to already performed stairs. Stair Climbing Assessment Evaluation Level of Assist On Stairs Contact Guard Assistance Devices Stair Climbing Assistive Devices Front Wheel Walker Right Railing Technique/Endurance Stair Climbing Direction Ascend and Descend Stair Climbing Technique Step to Step Number of Steps Climbed 5 Query Text: Stair Climbing Set # Repetitions (reps) 2 Comments Stair Climbing Comments pt went up/down regular therapy stairs with right ascending rail, pt went up/ down platform stair with FWW. Pt needed Mod cuing and Min A. Pt will need strong assist getting into house. PT-Balance Assessment Sitting Balance and Reactions Static Sitting Balance Ability Good Dynamic Sitting Balance Ability Good Standing Balance and Reactions Static Standing Balance Ability Fair Dynamic Standing Balance Ability Fair Device Used FWW M5 PT-IP Objective Assessments Start: 05/25/18 12:34 Freq: NEEDED Status: Active Protocol: Document 05/25/18 09:55 AB (Rec: 05/25/18 13:15 AB [id number]) Orientation Orientation/Cognition Level of Alertness Alert Orientation Name Age Birthday Month Date Year Day of Week Place Situation Language Function Ability Hard of Hearing Safety Awareness Decreased Safety Awareness Memory Description Short Term Impaired Industrial Property Appraiser Impaired Gross Range of Motion Lower Extremity ROM Assessment Bilaterally Impaired Impairments decrease bialteral knee extension Strength Lower Extremity Strength Assessment Bilaterally Impaired Hip 4-/5 Knee 4-/5 M6 PT-IP Treatment Start: 05/25/18 12:34 Freq: NEEDED Status: Active Protocol: Document 05/26/18 14:25 CLB (Rec: 05/26/18 16:08 CLB [id number]) Physical Therapy Treatment Exercises Exercises Ankle Pumps Gluteal Sets Quad Sets Heel Slides Education Education Provided Precautions Weight Bearing Status Post-Op Packet Safety Other Treatments Other Treatment Performed reviewed hip precautions. M7 PT-IP Assessment and Plan Start: 05/25/18 12:34 Freq: NEEDED Status: Active Protocol: Document 05/26/18 14:25 CLB (Rec: 05/26/18 16:08 CLB [id number]) PT Summary Assessment and Plan Potential Rehabilitation Potential Fair Status of Condition at Evaluation Evolving Summary Impairments Pain ROM Strength Balance Coordination Sensation Tone Cognition Bed Mobility Transfers Gait Activity Tolerance Progress Towards Goals Slow Progress due to Medical Issues Slow Progress due to Activity Tolerance Assessment Summary Pt continues to need Min A sit -stand and sit-supine. Pt also needs Min A with Mod cuing on stairs. Pt will require strong assist at this point to get into house up/down two platform steps. Caregiver training needed before d/c home. Goals Bed Mobility Goal Standby Assistance Transfer Goal Standby Assistance Front Wheeled Walker Gait Goal Standby Assistance Front Wheel Walker Gait Distance 100 Other Goals up/down 2 steps using R rail ascending SBA Days to Meet Goals 3 Frequency of Treatment Frequency Of Treatment Twice a Day Treatment Plan Physical Therapy Treatment Plan Bed Mobility Training Transfer Training Gait Training Therapeutic Exercise Balance Retraining Post Op Education Discharge Planning Hot or Cold Pack Neuromuscular Re-ed Coordination Retraining Manual Therapy Other Recommendations and Next Treatment hip precaution education, Focus stair climbing and caregiver training before d/c if going home. Recommendations To Nursing Amount of Assist Needed 1 Person Assist Discharge Recommendations PT Discharge Recommendations Home with 24/ Assist Home Health SNF Rehab Outpatient PT Other Discharge Recommendations SNF vs 24/ assist/ outpt PT/ homehealth PT
[2018-05-26 18:00] VITALS: BP 123/62; PULSE 87; RESP 16; TEMP 36.9; O2SAT 96
[2018-05-26] MEDS: AMITRIPTYLINE 25 MG TABLET PO (20:22)
[2018-05-26 22:00] VITALS: BP 136/70; PULSE 85; RESP 16; TEMP 36.9; O2SAT 97
[2018-05-26 23:59] VITALS: BP 148/82; PULSE 88; RESP 16; TEMP 36.7; O2SAT 94
[2018-05-27] VITALS (7 sets, daily range): BP systolic 137–153; BP diastolic 72–88; PULSE 86–101; RESP 16–18; TEMP 36.3–36.8; O2SAT 94–99
[2018-05-27] MEDS: OXYCODONE IR 5 MG TABLET PO ×5 (02:49→18:39)
--- NOTE | 2018-05-27 04:21 | PC.NURSE ---
XC/O LLE muscles spasms. PT. reported DR. Cuevas gave some Vistaril before my surgery & it helped. Dr. Nguyễn notified order received to give 25 mg. of Vistaril PO every 4 hrs. PRN. Pt's. VS B/P 153/88. HR. 86 & RR 18. Awaiting for night pharmacist to verify order, will monitor.
[2018-05-27] MEDS: hydrOXYzine pamoate 25 MG CAPSULE PO ×4 (04:37→18:39)
--- NOTE | 2018-05-27 07:19 | PM.PNPO.1 ---
Subjective Date Patient Seen: 05/27/18 Time Patient Seen: 07:19 Interval history: Pain is mild. Denies fever or chills. No nausea vomiting. Patient was ambulating out in the [place] with physical therapy yesterday. Patient did practice stairs. Patient has assistance at home by her neighbor and nondenominational friends. Exam Vital Signs (past 8 hours): - 05/26/18 23:59 05/27/18 00:14 05/27/18 03:55 Temperature 98.0 F 97.7 F Pulse Rate 88 86 Respiratory Rate Blood Pressure 148/82 H 153/88 H Pulse Oximetry 94 97 94 Oxygen Delivery Method Room Air Oxygen Flow Rate 0 Narrative Exam Narrative: 73-year-old female resting comfortably in bed. Patient is in no apparent distress. Left hip dressing clean, dry and intact. Neurovascular status is intact to the distal left lower extremity. Objective Labs Result Diagrams: 05/26/18 05:00 Assessment & Plan Post-op Postoperative Procedures Operation Date: 05/24/18 12:15 Actual Procedures Side Surgeon p Total Hip Arthroplasty Left Mandy Cuevas MD Patient progressing as expected status post left total hip arthroplasty. Patient will work with Physical therapy this morning and will followup to decide discharge home versus half-way facility later today. Time Spent With Patient less than 15 minutes Quality VTE Deep Vein Thrombosis/Pulmonary Embolism Present on Admission: No
--- NOTE | 2018-05-27 07:22 | P.PN_ITS ---
Subjective Date Patient Seen: 05/27/18 Time Patient Seen: 07:19 Interval history: Pain is mild. Denies fever or chills. No nausea vomiting. Patient was ambulating out in the [place] with physical therapy yesterday. Patient did practice stairs. Patient has assistance at home by her neighbor and adventism friends. Exam Vital Signs (past 8 hours): - 05/26/18 23:59 05/27/18 00:14 05/27/18 03:55 Temperature 98.0 F 97.7 F Pulse Rate 88 86 Respiratory Rate Blood Pressure 148/82 H 153/88 H Pulse Oximetry 94 97 94 Oxygen Delivery Method Room Air Oxygen Flow Rate 0 Narrative Exam Narrative: 73-year-old female resting comfortably in bed. Patient is in no apparent distress. Left hip dressing clean, dry and intact. Neurovascular status is intact to the distal left lower extremity. Objective Labs Result Diagrams: 05/26/18 05:00 Assessment & Plan Post-op Postoperative Procedures Operation Date: 05/24/18 12:15 Actual Procedures Side Surgeon p Total Hip Arthroplasty Left Mandy Cuevas MD Patient progressing as expected status post left total hip arthroplasty. Patient will work with Physical therapy this morning and will followup to decide discharge home versus residential facility later today. Time Spent With Patient less than 15 minutes Quality VTE Deep Vein Thrombosis/Pulmonary Embolism Present on Admission: No
--- NOTE | 2018-05-27 08:21 | PC.NURSE ---
Cee states her pain is under control currently after experiencing leg spasms during the night. Vistaril administration appears helpful. Cee asked for the bedpan this AM to void, as she had been at night, but nrs[facility]. staff enc. her to get up and amb., which she did. Ortho stable. Aqualcel drsg. clean/dry/intact. VSS. Anticipate DC later today.
[2018-05-27] MEDS: POLYETHYLENE GLYCOL 3350 17 GM POWD.PACK PO (09:45)
[2018-05-27] MEDS: ASPIRIN EC 81 MG TABLET PO ×2 (09:45→20:21)
[2018-05-27] MEDS: FERROUS SULFATE 325 MG TABLET PO (09:45)
[2018-05-27] MEDS: DOCUSATE 100 MG CAPSULE PO ×2 (09:45→20:21)
[2018-05-27] MEDS: LISINOPRIL 20 MG TABLET PO (09:45)
[2018-05-27] MEDS: ACETAMINOPHEN 325 MG TABLET 975 MG PO ×2 (09:45→20:20)
[2018-05-27] MEDS: ASCORBIC ACID 500 MG TABLET PO (09:46)
[2018-05-27] MEDS: SODIUM CHLORIDE 0.9% FLUSH 10 ML IV ×2 (09:46→20:21)
--- NOTE | 2018-05-27 10:23 | PT.IPTN ---
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) Presence of right artificial hip joint (05/24/18) Surgery Performed Operation Date: 05/24/18 12:15 Actual Procedures p Total Hip Arthroplasty(Left) - Mandy Cuevas MD Physical Therapy Treatment Note M2 PT-IP Current Condition Start: 05/25/18 12:34 Freq: NEEDED Status: Active Protocol: Document 05/25/18 09:55 AB (Rec: 05/25/18 13:15 AB [id number]) Physical Therapy Current Condition Current Condition Evaluation Date 05/25/18 Treatment Diagnosis s/p L NAT Onset Date 05/24/18 Precautions Posterior Hip Precautions No Hip Flexion > 90 degrees No Hip Internal Rotation No Hip Adduction Other Precautions falls Weight Bearing Status Weight Bearing Status Weight Bear as Tolerated M3 PT-IP Subjective Start: 05/25/18 12:34 Freq: NEEDED Status: Active Protocol: Document 05/27/18 09:15 CLB (Rec: 05/27/18 10:23 CLB [email or web address]) Subjective Physical Therapy Visit Type Type Treatment Note Visit Start Time 09:15 Visit Stop Time 09:40 Total Visit Minutes 25 Number of PRINTING ENGINEER Visits 3 Physical Therapy Visit Comments Patient Comments Pt agreeable to do therapy. Therapy Pain Assessment Pain When Pain Assessed During Mobility Pain Present Pain Present Pain Reported Location Back Intensity 4 Scale Used Numeric (1 - 10) M4 PT-IP Mobility and Gait Start: 05/25/18 12:34 Freq: NEEDED Status: Active Protocol: Document 05/27/18 09:15 CLB (Rec: 05/27/18 10:23 CLB [email or web address]) PT-Bed Mobility Assessment Rolling Level of Assist Contact Guard Assistance Supine to Sit Supine to Sit Contact Guard Assistance Sit to Supine Sit to Supine Minimal Assistance Scooting Scooting to Edge of Bed Minimal Assistance PT-Transfer Assessment Sit to and From Stand Sit to and from Stand Moderate Assistance 1 Person Assistance Use of Upper Extremities Equipment Transfer Assistive Device Gait Belt Front Wheeled Walker Orthotic/Prosthetic Devices or Brace: No Transfers Transfer Destination Bed Toilet Transfer Technique after ambulation Transfer Ability Level of Assist Minimal Assistance Moderate Assistance 1 Person Assistance Use of Upper Extremities Comments Mobility Comments Pt requiring increased assist with bed mobility and sit- stand from bed and toilet needing Mod A today. Gait Assessment Gait Gait Assistance Required: Contact Guard Assist Distance (Feet) (feet) 100 Able to Maintain Weight Bearing Status Yes During Gait Assistive Devices Assistive Device Gait Belt Front Wheeled Walker Orthotic/Prosthetic Devices or Brace: No Gait Deviations General Gait Pattern Antalgic Decreased Stride Length Decreased Feet Clearance Flexed Trunk Narrow Based Gait Step-to Gait Factors Limiting Gait Function Factors Limiting Gait Function Decreased Activity Tolerance Decreased Strength Difficulty Following Directions Pain Poor Balance Poor Safety Awareness Comments Gait Comments Pt walks on Left toes and has difficulty walking heel-toe due to flexion contraction of left knee. PT-Balance Assessment Sitting Balance and Reactions Static Sitting Balance Ability Good Dynamic Sitting Balance Ability Good Standing Balance and Reactions Static Standing Balance Ability Fair Dynamic Standing Balance Ability Fair Device Used FWW M5 PT-IP Objective Assessments Start: 05/25/18 12:34 Freq: NEEDED Status: Active Protocol: Document 05/25/18 09:55 AB (Rec: 05/25/18 13:15 AB [id number]) Orientation Orientation/Cognition Level of Alertness Alert Orientation Name Age Birthday Month Date Year Day of Week Place Situation Language Function Ability Hard of Hearing Safety Awareness Decreased Safety Awareness Memory Description Short Term Impaired Skilled Nursing Impaired Gross Range of Motion Lower Extremity ROM Assessment Bilaterally Impaired Impairments decrease bialteral knee extension Strength Lower Extremity Strength Assessment Bilaterally Impaired Hip 4-/5 Knee 4-/5 M6 PT-IP Treatment Start: 05/25/18 12:34 Freq: NEEDED Status: Active Protocol: Document 05/27/18 09:15 CLB (Rec: 05/27/18 10:23 CLB [email or web address]) Physical Therapy Treatment Exercises Exercises Ankle Pumps Gluteal Sets Quad Sets Heel Slides Education Education Provided Precautions Post-Op Packet Safety Other Treatments Other Treatment Performed reviewed hip precautions M7 PT-IP Assessment and Plan Start: 05/25/18 12:34 Freq: NEEDED Status: Active Protocol: Document 05/27/18 09:15 CLB (Rec: 05/27/18 10:23 CLB [email or web address]) PT Summary Assessment and Plan Potential Rehabilitation Potential Fair Status of Condition at Evaluation Evolving Summary Impairments Pain ROM Strength Balance Coordination Sensation Tone Cognition Bed Mobility Transfers Gait Activity Tolerance Progress Towards Goals Slow Progress due to Activity Tolerance Assessment Summary Pt required increased assist for bed mobility and sit-stand . Pt is inconsistent with information on assist at home and at this time pt will need 24/7 assist. If pt is unable to have 24/7 assist she will not be able safely d/c home and would require SNF rehab to increase strength and activity tolerance to increase safety at home. Goals Bed Mobility Goal Standby Assistance Transfer Goal Standby Assistance Front Wheeled Walker Gait Goal Standby Assistance Front Wheel Walker Gait Distance 100 Other Goals up/down 2 steps using R rail ascending SBA Frequency of Treatment Frequency Of Treatment Twice a Day Treatment Plan Physical Therapy Treatment Plan Bed Mobility Training Transfer Training Gait Training Therapeutic Exercise Balance Retraining Post Op Education Discharge Planning Hot or Cold Pack Neuromuscular Re-ed Coordination Retraining Manual Therapy Other Recommendations and Next Treatment hip precaution education, Focus stair climbing and caregiver training before d/c if going home. Recommendations To Nursing Amount of Assist Needed 1 Person Assist Discharge Recommendations PT Discharge Recommendations SNF Rehab Other Discharge Recommendations SNF rehab
--- NOTE | 2018-05-27 10:27 | CM.DPC ---
DCP/continued: Reviewed chart. Received verbal referral from PT indicating that patient would benefit from SNF if discharged within the next 24hrs. Met with patient to discuss d/c plan. Patient reports that she would prefer to go home but is agreeable to short SNF stay. First SNF choice is [facility]. REPORTING LEAD unsure if they have contract with [employer]. REPORTING LEAD left message with [facility] Navigator/Secret [facility]# [phone]. In addition, placed call to [facility] and spoke with admit. They are more than happy to review and attempt to obtain single case agreement with insurer. Asked SANDY/Anita to fax clinicals to [facility]. P: Pending. Hopeful patient can go to [facility] if authorized at time of d/c. JEB Velazco
--- NOTE | 2018-05-27 12:27 | OT.IP.TRT ---
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) Presence of right artificial hip joint (05/24/18) Surgery Performed Operation Date: 05/24/18 12:15 Actual Procedures p Total Hip Arthroplasty(Left) - Mandy Cuevas MD Occupational Therapy Treatment Note M2 OT-IP Current Condition Start: 05/25/18 15:20 Freq: Status: Active Protocol: Document 05/25/18 02:55 ADH (Rec: 05/25/18 15:26 ADH [email or web address]) Occupational Therapy Current Condition Current Condition Evaluation Date 05/25/18 Treatment Diagnosis L total hip Diagnosis Onset Date 05/24/18 Post Operative Precautions Posterior Hip Precautions No Hip Flexion > 90 degrees No Hip Internal Rotation No Hip Adduction Other Precautions falls Weight Bearing Status Weight Bearing Status Weight Bear as Tolerated M3 OT- IP Subjective and Pain Start: 05/25/18 15:20 Freq: Status: Active Protocol: Document 05/27/18 12:27 PJM (Rec: 05/27/18 17:13 PJM [email or web address]) OT- Subjective Occupational Therapy Visit Type Type Treatment Note Visit Start Time 11:56 Visit Stop Time 12:27 Total Visit Minutes 31 Occupational Therapy Visit Comments Patient Comments My muscles in my inner thigh are really spasming. OT Pain Assessment Pain When Pain Assessed After Treatment Pain Present Pain Present Pain Reported Location Back Intensity 3 Left Hip Intensity 3 Scale Used in L inner thigh Description Cramping Pain Behaviors Facial Grimacing Guarding Holding Area Management Techniques Distraction Re-positioning Timing of Activity with Medications M4 OT- IP ADL's Start: 05/25/18 15:20 Freq: Status: Active Protocol: Document 05/27/18 12:27 PJM (Rec: 05/27/18 17:13 PJM [email or web address]) OT ADL-Dressing General Eval Lower Body Dressing Ability Minimal Assistance Areas Needing Assistance Underpants/Brief Socks Shoes Assistive Devices Dressing Assistive Devices Long Handled Shoe Horn Assistant Golf Course Superintendent Sock Aid Comments OT Dressing Comments Pt needs mod+ verbal cues to problem solve use of adaptive equipment and to avoid bending forward. Pt states she has repairer finished metal and sock aid at home and long shoe horn provided yesterday. M5 OT- IP IADL's Start: 05/25/18 15:20 Freq: Status: Active Protocol: Document 05/25/18 02:55 ADH (Rec: 05/25/18 15:45 ADH [email or web address]) OT-Instrumental Activities of Daily Living Driving Driving Comments Pt recommended to hold off on driving until cleared by . M6 OT- IP Functional Cognition Start: 05/25/18 15:20 Freq: Status: Active Protocol: Document 05/27/18 12:27 PJM (Rec: 05/27/18 17:13 PJM [id number]) Cognitive Factors Limiting Selfcare Function Cognitive Ability Level of Alertness Alert Ability to Follow Commands Able to Follow One Step Commands Memory Description Short Term Impaired Safety Awareness Decreased Recall of Precautions Decreased Ability to Apply Precautions Underestimates Need for Assistance Problem Solving Ability Unable to Identify Errors Needs Assist to Identify Solutions Executive Function Ability Unable to Remember Details Abstract Thinking Ability Unable to Apply Concepts to New Situations Cognitive Comments Cognitive Assessment Comments Pt able to recall precautions but needs mod verbal cues to apply them to functional mobility and self care tasks such as lower body dressing. M7 OT- IP Mobility and Balance Start: 05/25/18 15:20 Freq: Status: Active Protocol: Document 05/27/18 12:27 PJM (Rec: 05/27/18 17:13 PJM [email or web address]) OT- Bed Mobility Assessment Supine to Sit Supine to Sit Assist Minimal Assistance Scooting Scooting to Edge of Bed Contact Guard Assistance OT-Transfer Assessment Sit to and From Stand Sit to and from Stand Minimal Assistance Transfers Transfer Ability Contact Guard Assistance Technique Transfer Destination Chair Transfer Technique Stand Step Pivot Devices Transfer Assistive Devices Gait Belt Front Wheeled Walker Comments Mobility Comments Pt using gait belt as leg varsity baseball coach during bed mobility. Max cues for bed mobility technique and to adhere to precautions. OT- Gait Assessment Gait Gait Assistance Required: Contact Guard Assist Assistive Devices Assistive Device Gait Belt Front Wheeled Walker Comments Gait Ability Comments Pt keeps L knee flexed. Per P. T. , pt has L knee flexion contracture so walks on L toes . OT- Balance Assessment Sitting Balance and Reactions Static Sitting Balance Ability Good Dynamic Sitting Balance Ability Good Standing Balance and Reactions Static Standing Balance Ability Fair Dynamic Standing Balance Ability Fair M8 OT- IP Objective Assessments Start: 05/25/18 15:20 Freq: Status: Active Protocol: Document 05/25/18 02:55 ADH (Rec: 05/25/18 15:45 ADH [email or web address]) OT Gross Range of Motion Upper Extremity Range of Motion Assessment Within Functional Limits OT Strength Upper Extremity Strength Assessment Within Functional Limits OT- Coordination Assessment Upper Extremity Finger Tapping Test Within Functional Limits M9 OT- IP Assessment and Plan Start: 05/25/18 15:20 Freq: Status: Active Protocol: Document 05/27/18 12:27 PJM (Rec: 05/27/18 17:13 PJM [email or web address]) OT Summary Assessment and Plan Potential Rehabilitation Potential Good Summary OT Impairments Pain Strength Balance Functional Mobility Dressing Toileting Bathing Toilet Transfers Shower Transfers Progress Towards Goals Slow Progress due to Pain Assessment Summary Pt able to recall hip precautions but needs mod verbal cues to apply them to functional mobility and self care tasks such as lower body dressing. She performs all tasks slowly with distractibility and decreased problem solving noted. Pt unable to verbalize strategies for adapted IADLS, such as carrying objects with FWW. Pt currently not safe to return home alone, and cannot identify as specific caregiver who can provide assistance at home. Recommend SNF at discharge for further rehab services. Goals Grooming Goal Standby Assistance Dressing Goal Standby Assistance Toileting Goal Standby Assistance Bathing Goal Minimal Assistance Toilet Transfer Goal Standard Toilet Shower Transfer Goal Minimal Assistance Patient/Caregiver Education Goal Demonstrate Post-Op Precautions OT-Other Goals Grooming to be done standing at sink. Days to Meet Goals 7 Frequency of Treatment Frequency Of Treatment Once a Day Treatment Plan OT Treatment Plan ADL Training Functional Mobility Patient/Family Education Discharge Planning Discharge Recommendations OT Discharge Recommendations SNF Rehab
--- NOTE | 2018-05-27 17:09 | PT.IPTN ---
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) Presence of right artificial hip joint (05/24/18) Surgery Performed Operation Date: 05/24/18 12:15 Actual Procedures p Total Hip Arthroplasty(Left) - Mandy Cuevas MD Physical Therapy Treatment Note M2 PT-IP Current Condition Start: 05/25/18 12:34 Freq: NEEDED Status: Active Protocol: Document 05/27/18 17:00 TMS (Rec: 05/27/18 17:09 TMS [id number]) Physical Therapy Current Condition Current Condition Evaluation Date 05/25/18 Treatment Diagnosis s/p L NAT Onset Date 05/24/18 Precautions Posterior Hip Precautions No Hip Flexion > 90 degrees No Hip Internal Rotation No Hip Adduction Other Precautions falls Weight Bearing Status Weight Bearing Status Weight Bear as Tolerated M3 PT-IP Subjective Start: 05/25/18 12:34 Freq: NEEDED Status: Active Protocol: Document 05/27/18 17:00 TMS (Rec: 05/27/18 17:09 TMS [id number]) Subjective Physical Therapy Visit Type Type Treatment Note Visit Start Time 16:15 Visit Stop Time 16:55 Total Visit Minutes 40 Number of ACCREDITATION MANAGER Visits 4 Physical Therapy Visit Comments Patient Comments Pt. comfortable in bed but willing to get up, requested bath room. Therapy Pain Assessment Pain When Pain Assessed During Mobility Pain Present Pain Present Pain Reported Location Back Pain Management Techniques Re-positioning M4 PT-IP Mobility and Gait Start: 05/25/18 12:34 Freq: NEEDED Status: Active Protocol: Document 05/27/18 17:00 TMS (Rec: 05/27/18 17:09 TMS [id number]) PT-Bed Mobility Assessment Supine to Sit Supine to Sit Minimal Assistance Scooting Scooting to Edge of Bed Contact Guard Assistance PT-Transfer Assessment Sit to and From Stand Sit to and from Stand Minimal Assistance Equipment Transfer Assistive Device Gait Belt Front Wheeled Walker Orthotic/Prosthetic Devices or Brace: No Transfers Transfer Destination Chair Toilet Transfer Technique after ambulation Transfer Ability Level of Assist Minimal Assistance Use of Upper Extremities Comments Mobility Comments Pt. continues to need assist with bed mobility, left knee was in flexed position and needed assist to get it straight. Assist with supine to sit. Gait Assessment Gait Gait Assistance Required: Contact Guard Assist Distance (Feet) (feet) 80 Able to Maintain Weight Bearing Status Yes During Gait Assistive Devices Assistive Device Gait Belt Front Wheeled Walker Orthotic/Prosthetic Devices or Brace: No Gait Deviations General Gait Pattern Antalgic Decreased Stride Length Decreased Feet Clearance Flexed Trunk Narrow Based Gait Step-to Gait Factors Limiting Gait Function Factors Limiting Gait Function Decreased Activity Tolerance Decreased Strength Difficulty Following Directions Pain Poor Balance Poor Safety Awareness Comments Gait Comments Pt. used B.R. while up, washed hands at sink with min-A. Flexed trunk and flexed left knee with gait, needed cues to avoid twisting left L.E. with turns. M5 PT-IP Objective Assessments Start: 05/25/18 12:34 Freq: NEEDED Status: Active Protocol: Document 05/25/18 09:55 AB (Rec: 05/25/18 13:15 AB [id number]) Orientation Orientation/Cognition Level of Alertness Alert Orientation Name Age Birthday Month Date Year Day of Week Place Situation Language Function Ability Hard of Hearing Safety Awareness Decreased Safety Awareness Memory Description Short Term Impaired Airport Shuttle Driver Impaired Gross Range of Motion Lower Extremity ROM Assessment Bilaterally Impaired Impairments decrease bialteral knee extension Strength Lower Extremity Strength Assessment Bilaterally Impaired Hip 4-/5 Knee 4-/5 M6 PT-IP Treatment Start: 05/25/18 12:34 Freq: NEEDED Status: Active Protocol: Document 05/27/18 17:00 TMS (Rec: 05/27/18 17:09 TMS [id number]) Physical Therapy Treatment Exercises Exercises Ankle Pumps Seated Knee Flexion/Extension Education Education Provided Precautions Post-Op Packet Safety Other Treatments Other Treatment Performed Thoroughly reviewed precautions, able to recall 2/ 3. Reviewed handouts. M7 PT-IP Assessment and Plan Start: 05/25/18 12:34 Freq: NEEDED Status: Active Protocol: Document 05/27/18 17:00 TMS (Rec: 05/27/18 17:09 TMS [id number]) PT Summary Assessment and Plan Summary Assessment Summary Pt. continues to need assist with mobility, doesn't have a good awareness of precautions with mobility. Frequency of Treatment Frequency Of Treatment Twice a Day Treatment Plan Physical Therapy Treatment Plan Bed Mobility Training Transfer Training Gait Training Therapeutic Exercise Balance Retraining Post Op Education Discharge Planning Hot or Cold Pack Neuromuscular Re-ed Coordination Retraining Manual Therapy Other Recommendations and Next Treatment Recommend pt. go to SNF for Focus continued rehab before returns home with very limited help. Recommendations To Nursing Amount of Assist Needed 1 Person Assist Discharge Recommendations PT Discharge Recommendations SNF Rehab Other Discharge Recommendations SNF rehab
[2018-05-27] MEDS: AMITRIPTYLINE 25 MG TABLET PO (20:21)
[2018-05-28] VITALS (10 sets, daily range): BP systolic 122–139; BP diastolic 65–88; PULSE 58–91; RESP 16–20; TEMP 36.3–37.1; O2SAT 94–98
[2018-05-28] MEDS: OXYCODONE IR 5 MG TABLET PO ×5 (01:09→23:54)
[2018-05-28] MEDS: hydrOXYzine pamoate 25 MG CAPSULE PO ×3 (01:10→20:50)
--- NOTE | 2018-05-28 07:49 | PM.PN.1 ---
Subjective Date Patient Seen: 05/28/18 Time Patient Seen: 07:49 Interval history: POD #4 status post total hip arthroplasty with Dr. Cuevas. Patient plans to go to SNF for continued care following surgery. She has been ambulating with physical therapy, and has times of feeling unsteady. She has concerns of going home alone, and her home is not adequately set up for recovery. Her pain has been controlled. Denies any nausea or vomiting. Exam Vital Signs (past 8 hours): - 05/28/18 00:00 05/28/18 05:36 05/28/18 07:33 Temperature 98.7 F 97.4 F L 97.9 F Pulse Rate 91 H 82 75 Respiratory Rate 20 16 16 Blood Pressure 130/74 H 131/68 H 139/72 H Pulse Oximetry 94 96 97 Oxygen Delivery Method Room Air Oxygen Flow Rate 0 Narrative Exam Narrative: Patient lying in bed in no acute distress. She is alert and oriented x3. Dressing on hip is CDI. Calves are soft, compressible, nontender bilaterally. She is able to actively dorsiflex and plantar flex. Sensation intact to light touch throughout bilateral lower extremities. Objective Labs Result Diagrams: 05/26/18 05:00 Assessment & Plan (1) Postoperative anemia due to acute blood loss: Problem details: Iron and Vt C ordered. Current visit: Yes Status: Acute (2) S/P total hip arthroplasty: Current visit: Yes Status: Acute Plan: Assessment/Plan Narrative: POD #4 status post total hip arthroplasty with Dr. Cuevas. Patient will need SNF for continued recovery. She does not have adequate support or set up at home. She has moments of unsteadiness and afraid of possibility of falling. Continue current pain management. DC to SNF once authorized. Quality VTE Deep Vein Thrombosis/Pulmonary Embolism Present on Admission: No
[2018-05-28] MEDS: FERROUS SULFATE 325 MG TABLET PO (08:32)
[2018-05-28] MEDS: ASCORBIC ACID 500 MG TABLET PO (08:32)
[2018-05-28] MEDS: DOCUSATE 100 MG CAPSULE PO ×2 (08:33→20:49)
[2018-05-28] MEDS: ACETAMINOPHEN 325 MG TABLET 975 MG PO ×3 (08:33→20:30)
[2018-05-28] MEDS: LISINOPRIL 20 MG TABLET PO (08:33)
[2018-05-28] MEDS: ASPIRIN EC 81 MG TABLET PO ×2 (08:34→20:50)
[2018-05-28] MEDS: POLYETHYLENE GLYCOL 3350 17 GM POWD.PACK PO (08:34)
[2018-05-28] MEDS: SODIUM CHLORIDE 0.9% FLUSH 10 ML IV ×2 (08:34→20:33)
--- NOTE | 2018-05-28 09:35 | OT.IP.TRT ---
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) Presence of right artificial hip joint (05/24/18) Presence of unspecified artificial hip joint (05/24/18) Surgery Performed Operation Date: 05/24/18 12:15 Actual Procedures p Total Hip Arthroplasty(Left) - Mandy Cuevas MD Occupational Therapy Treatment Note M2 OT-IP Current Condition Start: 05/25/18 15:20 Freq: Status: Active Protocol: Document 05/25/18 02:55 ADH (Rec: 05/25/18 15:26 ADH [id number]) Occupational Therapy Current Condition Current Condition Evaluation Date 05/25/18 Treatment Diagnosis L total hip Diagnosis Onset Date 05/24/18 Post Operative Precautions Posterior Hip Precautions No Hip Flexion > 90 degrees No Hip Internal Rotation No Hip Adduction Other Precautions falls Weight Bearing Status Weight Bearing Status Weight Bear as Tolerated M3 OT- IP Subjective and Pain Start: 05/25/18 15:20 Freq: Status: Active Protocol: Document 05/28/18 09:35 PJM (Rec: 05/28/18 12:19 PJM [id number]) OT- Subjective Occupational Therapy Visit Type Type Treatment Note Visit Start Time 08:40 Visit Stop Time 09:35 Total Visit Minutes 55 Occupational Therapy Visit Comments Patient Comments I am not having those muscle spasms today. OT Pain Assessment Pain When Pain Assessed After Treatment Pain Present Pain Present Pain Reported Location Back Intensity 3 Scale Used Numeric (1 - 10) Description Aching Pain Behaviors Facial Grimacing Guarding M4 OT- IP ADL's Start: 05/25/18 15:20 Freq: Status: Active Protocol: Document 05/28/18 09:35 PJM (Rec: 05/28/18 12:19 PJM [id number]) OT ADL-Grooming General Evaluation Grooming Ability Standby Assistance Areas Needing Assistance Retrieving/Set-up of Grooming Items Comments OT Grooming Comments Pt declined to stand at sink after walking to bathroom so grooming completed seated in chair. OT ADL-Oral Care General Eval Oral Care Ability Standby Assistance Comments Oral Care Comments seated in chair after set up OT ADL-Dressing General Eval Upper Body Dressing Ability Independent Lower Body Dressing Ability Minimal Assistance Areas Needing Assistance Pants/Shorts Socks Shoes Assistive Devices Dressing Assistive Devices Long Handled Shoe Horn Director Supplier Quality Sock Aid Comments OT Dressing Comments Pt continues to need mod verbal cues and min assist for lower body dressing with AED. Pt states her shirt operator at home is not working properly so provided pt with new shirt operator. Better awareness of hip precautions today. OT ADL-Toileting General Evaluation Toileting Ability Standby Assistance Minimal Assistance Areas Needing Assistance Manage Clothing Perform Perineal Hygiene Devices Toileting Assistive Devices Commode Comments OT Toileting Comments Min verbal cues to adhere to hip precautions during davide care. Pt using commode over toilet to increase height and provide armrests. Pt needs SBA with davide care and min assist with clothing management. Small open area on R buttock noted and RN in to assess. OT ADL-Bathing Bathing Type Bathing Type Sponge Bath General Evaluation Bathing Ability Moderate Assistance Areas Needing Assistance Retrieving/Setting Up Items Wash/Dry Back Wash/Dry Lower Extremities Comments OT Bathing Comments Pt declined shower but agreed to sponge bath M5 OT- IP IADL's Start: 05/25/18 15:20 Freq: Status: Active Protocol: Document 05/25/18 02:55 ADH (Rec: 05/25/18 15:45 ADH [id number]) OT-Instrumental Activities of Daily Living Driving Driving Comments Pt recommended to hold off on driving until cleared by MD. M6 OT- IP Functional Cognition Start: 05/25/18 15:20 Freq: Status: Active Protocol: Document 05/27/18 12:27 PJM (Rec: 05/27/18 17:13 PJM [id number]) Cognitive Factors Limiting Selfcare Function Cognitive Ability Level of Alertness Alert Ability to Follow Commands Able to Follow One Step Commands Memory Description Short Term Impaired Safety Awareness Decreased Recall of Precautions Decreased Ability to Apply Precautions Underestimates Need for Assistance Problem Solving Ability Unable to Identify Errors Needs Assist to Identify Solutions Executive Function Ability Unable to Remember Details Abstract Thinking Ability Unable to Apply Concepts to New Situations Cognitive Comments Cognitive Assessment Comments Pt able to recall precautions but needs mod verbal cues to apply them to functional mobility and self care tasks such as lower body dressing. M7 OT- IP Mobility and Balance Start: 05/25/18 15:20 Freq: Status: Active Protocol: Document 05/28/18 09:35 PJM (Rec: 05/28/18 12:19 PJM [id number]) OT- Bed Mobility Assessment Supine to Sit Supine to Sit Assist Standby Assistance Scooting Scooting to Edge of Bed Standby Assistance OT-Transfer Assessment Sit to and From Stand Sit to and from Stand Minimal Assistance Transfers Transfer Ability Contact Guard Assistance Technique Transfer Destination Chair Toilet Transfer Technique Stand Step Pivot Devices Transfer Assistive Devices Gait Belt Front Wheeled Walker Comments Mobility Comments Pt requiring less verbal cueing for bed mobility today and did better ability to move LLE. OT- Gait Assessment Gait Gait Assistance Required: Contact Guard Assist Assistive Devices Assistive Device Gait Belt Front Wheeled Walker Comments Gait Ability Comments Pt walked 25 ft in room. OT- Balance Assessment Sitting Balance and Reactions Static Sitting Balance Ability Good Dynamic Sitting Balance Ability Good Standing Balance and Reactions Static Standing Balance Ability Good Dynamic Standing Balance Ability Fair M8 OT- IP Objective Assessments Start: 05/25/18 15:20 Freq: Status: Active Protocol: Document 05/25/18 02:55 ADH (Rec: 05/25/18 15:45 ADH [id number]) OT Gross Range of Motion Upper Extremity Range of Motion Assessment Within Functional Limits OT Strength Upper Extremity Strength Assessment Within Functional Limits OT- Coordination Assessment Upper Extremity Finger Tapping Test Within Functional Limits M9 OT- IP Assessment and Plan Start: 05/25/18 15:20 Freq: Status: Active Protocol: Document 05/28/18 09:35 PJM (Rec: 05/28/18 12:19 [facility] [id number]) OT Summary Assessment and Plan Potential Rehabilitation Potential Good Summary OT Impairments Pain Strength Balance Functional Cognition Functional Mobility Grooming Dressing Toileting Bathing Toilet Transfers Shower Transfers Progress Towards Goals Slow Progress due to Pain Slow Progress due to Activity Tolerance Slow Progress due to Cognition Assessment Summary Pt still needs significant verbal cuing to adhere to hip precautions and problem solve adapted techniques with equipt . She continues to struggle with sit to stand, especially as she fatigues. Pt needs repetition of instructions to ensure carry over. Pt not safe to return home alone. Recommend SNF at discharge for further rehab services and progression to showering, tub transfers and light IADLS. Goals Grooming Goal Standby Assistance Dressing Goal Standby Assistance Toileting Goal Standby Assistance Bathing Goal Minimal Assistance Toilet Transfer Goal Standard Toilet Patient/Caregiver Education Goal Demonstrate Post-Op Precautions OT-Other Goals Grooming to be done standing at sink. Days to Meet Goals 6 Frequency of Treatment Frequency Of Treatment Once a Day Treatment Plan OT Treatment Plan ADL Training Functional Mobility Patient/Family Education Discharge Planning Discharge Recommendations OT Discharge Recommendations SNF Rehab
--- NOTE | 2018-05-28 10:37 | PT.IPTN ---
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) Presence of right artificial hip joint (05/24/18) Presence of unspecified artificial hip joint (05/24/18) Surgery Performed Operation Date: 05/24/18 12:15 Actual Procedures p Total Hip Arthroplasty(Left) - Mandy Cuevas MD Physical Therapy Treatment Note M2 PT-IP Current Condition Start: 05/25/18 12:34 Freq: NEEDED Status: Active Protocol: Document 05/27/18 17:00 TMS (Rec: 05/27/18 17:09 TMS [id number]) Physical Therapy Current Condition Current Condition Evaluation Date 05/25/18 Treatment Diagnosis s/p L NAT Onset Date 05/24/18 Precautions Posterior Hip Precautions No Hip Flexion > 90 degrees No Hip Internal Rotation No Hip Adduction Other Precautions falls Weight Bearing Status Weight Bearing Status Weight Bear as Tolerated M3 PT-IP Subjective Start: 05/25/18 12:34 Freq: NEEDED Status: Active Protocol: Document 05/28/18 10:37 AB (Rec: 05/28/18 12:22 AB [id number]) Subjective Physical Therapy Visit Type Type Treatment Note Visit Start Time 10:37 Visit Stop Time 10:58 Total Visit Minutes 21 Number of STOCKROOM KEEPER Visits 0 Physical Therapy Visit Comments Patient Comments pt agreeable to do therapy but refused to sit up on chair stating that the chair is too uncomfortable. Therapy Pain Assessment Pain When Pain Assessed At Rest Pain Present Pain Present Pain Reported Location Back Intensity 3 Scale Used Numeric (1 - 10) Pain Management Techniques Apply Cold Timing of Activity with Medications M4 PT-IP Mobility and Gait Start: 05/25/18 12:34 Freq: NEEDED Status: Active Protocol: Document 05/28/18 10:37 AB (Rec: 05/28/18 12:22 AB [id number]) PT-Bed Mobility Assessment Supine to Sit Supine to Sit Moderate Assistance Sit to Supine Sit to Supine Moderate Assistance PT-Transfer Assessment Sit to and From Stand Sit to and from Stand Moderate Assistance Equipment Transfer Assistive Device Gait Belt Front Wheeled Walker Gait Assessment Gait Gait Assistance Required: Minimum Assistance Distance (Feet) (feet) 200 Able to Maintain Weight Bearing Status Yes During Gait Assistive Devices Assistive Device Gait Belt Front Wheeled Walker Orthotic/Prosthetic Devices or Brace: No Gait Deviations General Gait Pattern Antalgic Decreased Stride Length Decreased Feet Clearance Flexed Trunk Factors Limiting Gait Function Factors Limiting Gait Function Decreased Activity Tolerance Decreased Strength Difficulty Following Directions Pain Poor Balance Poor Safety Awareness Comments Gait Comments pt with increase L knee flexion during standing/ ambulation M5 PT-IP Objective Assessments Start: 05/25/18 12:34 Freq: NEEDED Status: Active Protocol: Document 05/25/18 09:55 AB (Rec: 05/25/18 13:15 AB [id number]) Orientation Orientation/Cognition Level of Alertness Alert Orientation Name Age Birthday Month Date Year Day of Week Place Situation Language Function Ability Hard of Hearing Safety Awareness Decreased Safety Awareness Memory Description Short Term Impaired Colorer Machine Impaired Gross Range of Motion Lower Extremity ROM Assessment Bilaterally Impaired Impairments decrease bialteral knee extension Strength Lower Extremity Strength Assessment Bilaterally Impaired Hip 4-/5 Knee 4-/5 M6 PT-IP Treatment Start: 05/25/18 12:34 Freq: NEEDED Status: Active Protocol: Document 05/28/18 10:37 AB (Rec: 05/28/18 12:22 AB [id number]) Physical Therapy Treatment Education Education Provided Precautions Weight Bearing Status Post-Op Packet Safety M7 PT-IP Assessment and Plan Start: 05/25/18 12:34 Freq: NEEDED Status: Active Protocol: Document 05/28/18 10:37 AB (Rec: 05/28/18 12:22 AB [id number]) PT Summary Assessment and Plan Potential Rehabilitation Potential Good Summary Impairments Pain ROM Strength Balance Coordination Sensation Cognition Bed Mobility Transfers Gait Activity Tolerance Progress Towards Goals Slow Progress due to Medical Issues Assessment Summary pt continues to require mod A and cues for bed mobility and sit to stand. pt continues to require cues to maintain hip precautions. pt will benefit from SNF rehab. Goals Bed Mobility Goal Standby Assistance Transfer Goal Standby Assistance Front Wheeled Walker Gait Goal Standby Assistance Front Wheel Walker Gait Distance 100 Other Goals up/down 2 steps using R rail ascending SBA Frequency of Treatment Frequency Of Treatment Twice a Day Treatment Plan Physical Therapy Treatment Plan Bed Mobility Training Transfer Training Gait Training Therapeutic Exercise Balance Retraining Post Op Education Discharge Planning Hot or Cold Pack Neuromuscular Re-ed Coordination Retraining Manual Therapy Recommendations To Nursing Amount of Assist Needed 1 Person Assist Discharge Recommendations PT Discharge Recommendations SNF Rehab
--- NOTE | 2018-05-28 14:24 | CM.DPC ---
SNF referral faxed to [facility]
--- NOTE | 2018-05-28 15:07 | PC.NURSE ---
Ortho: SI guess I'm here for another day. management planner working on discharge. Pt reports she has more mobility then she has had. Has been up to the bathroom each time to void. needs help getting the leg in and oob, once up she is sba w/walker to the bathroom. Did decided to take an oxycodone this morning and has needed none since then. Received a dose of vistaril for muscle spasms. Pt reports routine acetominophen has been effective for controlling pain. Ortho - ppp, feet =/cool. Gait steady once she is up and walking. Pt denies any concerns today. Cont w/poc.
--- NOTE | 2018-05-28 15:41 | CM.DPC ---
DCP/Continued: Reviewed chart this AM. Spoke with Orthopedic team and patient medically cleared to d/c to SNF. HEAD UP OPERATOR placed call to Helena at [facility] this AM she reports no authorization from [facility] received. Notified Helena that orders obtained and that we would need placement today. Again, this afternoon placed call to [facility], they continue to report no authorization received only reference# [id number]. HEAD UP OPERATOR placed call to [facility] Medicare to inquire about SNF authorization. service engine repairer at [facility] reports that NO authorization needed for this [facility]/Medicare plan. Facility faxed requested within 24hrs of patient's arrival. Placed call back to Helena and [facility] and they report that they are not contracted therefore, need authorization. Met with to discuss plan. Patient aware and agreeable for HEAD UP OPERATOR to research another SNF in [facility] that can accept. Placed call to [facility] spoke with Stephanie she reports that they have authorization and can accept tomorrow 718 in AM. Asked SANDY/Anita to fax clinical and orders to [facility] for review. P: [facility]. [facility] to arrange transport. Patient aware and agreeable to plan. JEB Velazco
[2018-05-28] MEDS: MAGNESIUM HYDROXIDE 30 ML UDC PO (20:30)
[2018-05-28] MEDS: AMITRIPTYLINE 25 MG TABLET PO (20:49)
[2018-05-29] MEDS: hydrOXYzine pamoate 25 MG CAPSULE PO ×3 (00:57→11:11)
[2018-05-29] MEDS: OXYCODONE IR 5 MG TABLET PO ×3 (03:03→10:12)
[2018-05-29 03:08] VITALS: BP 123/58; PULSE 75; RESP 16; TEMP 36.7; O2SAT 95
--- NOTE | 2018-05-29 03:11 | PC.NURSE ---
Assumed care of pt from outgoing shift at 2300, 7-17. discussed plano f care for noc with pt, pt requests to be woken up when pain med or Vistaril is due. will abide. pt compliant with nursing assessments. Pt has trousers on, unable to visualize entire dressing, but what is visible is c/d/i. pt complains of pain and given per MAR. belongings and call light within reach. will continue to monitor pt for safety. bed alarm on. side rails upx3.
[2018-05-29 07:30] VITALS: O2SAT 96
--- NOTE | 2018-05-29 08:28 | P.DS_ITS ---
History of Present Illness Date Patient Seen: 05/29/18 Chief complaint: total hip arthroplasty [id number] Narrative: Patient is a 71-year-old female with history of left hip osteoarthritis. She failed conservative measures and elected to do is proceed with a left total hip replacement by Dr. Cuevas at [facility]. Discharge Providers Date of admission: 05/24/18 10:32 Consults: 05/24/18 16:41 Consult to Discharge Planning Routine Comment: Consult to Physical Therapy Evaluate & Treat Comment: Physician Instructions: post op NAT protocol Consult to Respiratory Therapy Evaluate & Treat Comment: Physician Instructions: Evaluate and treat 05/25/18 10:31 Consult to Occupational Therapy Evaluate & Treat Comment: Physician Instructions: Evaluate and treat Discharge provider: Betty Torre PA-C Summary Discharge Diagnosis: Left hip osteoarthritis Postoperative anemia Hospital Course: Patient was admitted taken operating room where she had a left total hip arthroplasty by Dr. Cuevas. She recovered well as transfer the floor for further care. Postop day 1 patient had postoperative anemia and iron and vitamin-C was ordered for her. She was slow to ambulate. She also lives at home and has no help postoperatively and elected to go to a care home facility for further therapy and rehab. Postop day 5, her insurance approved her for a care home facility and she was discharged to [facility] for further therapy and care. Status at Discharge Cognitive/behavioral status at discharge: Alert and orient times Functional status at discharge: uses cane/walker Overall status at discharge: patient is not back to baseline Time Spent with Patient Less than 30 minutes Exam Vital Signs (past 8 hours): - 05/29/18 03:08 Temperature 98.0 F Pulse Rate 75 Respiratory Rate 16 Blood Pressure 123/58 H Pulse Oximetry 95 Oxygen Delivery Method Room Air Oxygen Flow Rate 0 Narrative Exam Narrative: Left hip dressing clean and dry. Moderate swelling left hip. Neurovascular status intact. Five/five left ankle strength. Bilateral calf soft and nontender Objective Labs Result Diagrams: 05/26/18 05:00 Discharge Plan Discharge Plan Patient Disposition: SNF Transfer to: [facility] Under care of provider: Facility PCP Transportation: Facility vehicle Consult as needed: Dental, Hearing, Mental health, Podiatry and Vision Discharge comment: DC to SNF for continued rehabilitation after her total hip surgery I certify the postop hospital care home care is medically necessary on a continuing basis for any conditions for which he/ she received care during this hospitalization.: Yes The receiving facility has agreed to accept transfer and provide medical treatment.: Yes Discharge Med Rec/Prescriptions Prescriptions: New acetaminophen 325 mg Tablet 975 mg PO TID Qty: 60 RF: 0 aspirin 81 mg Tablet,Delayed Release (Dr/Ec) 81 mg PO BID Qty: 0 RF: 0 oxycodone 5 mg Tablet 5 mg PO Q4H PRN (Reason: Pain, Moderate (4-6)) Qty: 0 RF: 0 oxycodone 5 mg capsule 5 mg PO Q4-6H PRN (Reason: pain) Qty: 60 RF: 0 Continue lisinopril 20 mg Tablet 20 mg PO QAM RF: 0 amitriptyline 25 mg Tablet 25 mg PO BEDTIME RF: 0 Follow up/Referrals: Mandy Cuevas MD [Physician] - (5-7 days with [facility]) Discharge Health Status Multidrug resistant organism: No MDRO Provider Discharge Instructions Diet: Diet as Tolerated Liquid consistency: Normal/Thin Food texture: Regular Activity: Posterior hip precautions Cold/Heat Therapy: As needed Wound Care Report to your healthcare provider any signs of infection, such as:: chills, fever and increased pain Dressing: Please leave dressing in place for 10-14 days Special Rehabilitation Services Reason for rehabilitation: Post-operative therapy Rehab type: Physical therapy and Occupational therapy Restrictions to mobility: Posterior hip precautions Visit Report/Discharge Packet Instructions: DI for Hip Replacement, DI for Constipation Discharge Data Attending Provider: Mandy Cuevas Admit Date/Time: 05/24/18 10:32 Quality VTE Deep Vein Thrombosis/Pulmonary Embolism Present on Admission: No
[2018-05-29 08:40] VITALS: BP 127/66; PULSE 87; RESP 18; TEMP 36.4; O2SAT 94
[2018-05-29] MEDS: ACETAMINOPHEN 325 MG TABLET 975 MG PO (08:54)
--- NOTE | 2018-05-29 08:54 | CM.DPC ---
DCP/continued: Reviewed chart. Spoke with Ortho/PA Betty she confirms that patient is medically stable for d/c to SNF today. Asked SANDY/Anita to fax any updated notes to [facility]. Met with patient to confirm plan. Patient continues to be aware and agreeable [facility]. Placed call to admit at [facility] and they continue to be agreeable to accept. Patient scheduled to be picked up via w/c van at approximately 10:00am. RN notified. Patient requesting that CAN CLEANER call her friend Teresa with update. Attempted call but unable to reach and did not leave vm on unidentified line. Patient will re-attempt call to her friend/neighbors when she gets to [facility]. P: [facility] via w/c van today. JEB Velazco
[2018-05-29] MEDS: FERROUS SULFATE 325 MG TABLET PO (08:55)
[2018-05-29] MEDS: LISINOPRIL 20 MG TABLET PO (08:55)
[2018-05-29] MEDS: ASPIRIN EC 81 MG TABLET PO (08:56)
[2018-05-29] MEDS: DOCUSATE 100 MG CAPSULE PO (08:56)
[2018-05-29] MEDS: ASCORBIC ACID 500 MG TABLET PO (08:56)
--- NOTE | 2018-05-29 09:20 | PT.IPTN ---
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) Presence of right artificial hip joint (05/24/18) Presence of unspecified artificial hip joint (05/24/18) Surgery Performed Operation Date: 05/24/18 12:15 Actual Procedures p Total Hip Arthroplasty(Left) - Mandy Cuevas MD Physical Therapy Treatment Note M2 PT-IP Current Condition Start: 05/25/18 12:34 Freq: NEEDED Status: Discharge Protocol: Document 05/27/18 17:00 TMS (Rec: 05/27/18 17:09 TMS [id number]) Physical Therapy Current Condition Current Condition Evaluation Date 05/25/18 Treatment Diagnosis s/p L NAT Onset Date 05/24/18 Precautions Posterior Hip Precautions No Hip Flexion > 90 degrees No Hip Internal Rotation No Hip Adduction Other Precautions falls Weight Bearing Status Weight Bearing Status Weight Bear as Tolerated M3 PT-IP Subjective Start: 05/25/18 12:34 Freq: NEEDED Status: Discharge Protocol: Document 05/29/18 09:20 GGD (Rec: 05/29/18 11:56 GGD [id number]) Subjective Physical Therapy Visit Type Type Treatment Note Visit Start Time 08:50 Visit Stop Time 09:20 Total Visit Minutes 30 Number of RESOURCE TECHNICIAN Visits 1 Physical Therapy Visit Comments Patient Comments Pt states se would like to get up. Therapy Pain Assessment Pain When Pain Assessed At Rest Pain Present Pain Present Pain Reported Location Left Hip Intensity 2 Scale Used Numeric (1 - 10) M4 PT-IP Mobility and Gait Start: 05/25/18 12:34 Freq: NEEDED Status: Discharge Protocol: Document 05/29/18 09:20 GGD (Rec: 05/29/18 11:56 GGD [id number]) PT-Bed Mobility Assessment Supine to Sit Supine to Sit Minimal Assistance 1 Person Assistance Bedrails Scooting Scooting to Edge of Bed Contact Guard Assistance PT-Transfer Assessment Sit to and From Stand Sit to and from Stand Minimal Assistance 1 Person Assistance Use of Upper Extremities Equipment Transfer Assistive Device Gait Belt Front Wheeled Walker Gait Assessment Gait Gait Assistance Required: Minimum Assistance Distance (Feet) (feet) 200 Assistive Devices Assistive Device Gait Belt Front Wheeled Walker Orthotic/Prosthetic Devices or Brace: No Gait Deviations General Gait Pattern Antalgic Decreased Stride Length Decreased Feet Clearance Flexed Trunk Factors Limiting Gait Function Factors Limiting Gait Function Decreased Activity Tolerance Decreased Strength Difficulty Following Directions Pain Poor Balance Poor Safety Awareness Comments Gait Comments Pt need cues for posture and L knee flexion wiht gait. M5 PT-IP Objective Assessments Start: 05/25/18 12:34 Freq: NEEDED Status: Discharge Protocol: Document 05/25/18 09:55 AB (Rec: 05/25/18 13:15 AB [id number]) Orientation Orientation/Cognition Level of Alertness Alert Orientation Name Age Birthday Month Date Year Day of Week Place Situation Language Function Ability Hard of Hearing Safety Awareness Decreased Safety Awareness Memory Description Short Term Impaired Electronic Warfare Technical Impaired Gross Range of Motion Lower Extremity ROM Assessment Bilaterally Impaired Impairments decrease bialteral knee extension Strength Lower Extremity Strength Assessment Bilaterally Impaired Hip 4-/5 Knee 4-/5 M6 PT-IP Treatment Start: 05/25/18 12:34 Freq: NEEDED Status: Discharge Protocol: Document 05/29/18 09:20 GGD (Rec: 05/29/18 11:56 GGD [id number]) Physical Therapy Treatment Exercises Exercises Ankle Pumps Gluteal Sets Quad Sets Heel Slides Education Education Provided Precautions M7 PT-IP Assessment and Plan Start: 05/25/18 12:34 Freq: NEEDED Status: Discharge Protocol: Document 05/29/18 09:20 GGD (Rec: 05/29/18 11:56 GGD [id number]) PT Summary Assessment and Plan Summary Assessment Summary Pt needs cues for mobility, gait, and percautions. She needs assistance with bed mobility and sit to stand. Frequency of Treatment Frequency Of Treatment Twice a Day Treatment Plan Physical Therapy Treatment Plan Bed Mobility Training Transfer Training Gait Training Therapeutic Exercise Balance Retraining Post Op Education Discharge Planning Hot or Cold Pack Neuromuscular Re-ed Coordination Retraining Manual Therapy Recommendations To Nursing Amount of Assist Needed 1 Person Assist Discharge Recommendations PT Discharge Recommendations SNF Rehab
--- NOTE | 2018-05-29 11:41 | PC.NURSE ---
Ortho: Feels ready to d/c to facility. Report called to Jazmin at [facility]. Reviewed hospital course. Skin and wound care, additionally has sm open area on the rt buttock. Discussed mobility. No bm x6 days, pt thought she would have one today but didn't. Didn't want to use other measures as she was concerned she might have an accident. Questions answered. If they have any further questions they can call back until 1530. Pt transfered to facility vai their transport.
== END 2018-05-29 11:20 | DRG 470 ==
PROVIDERS: Physician Assistant; Admitting Provider Orthopaedic Surgery; Visit Provider Orthopaedic Surgery
PROC: 0SRB0JZ Replacement of Left Hip Joint with Synthetic Substitute, Open Approach (ICD-10-PCS; CPT 27130; principal; 2018-05-24 12:15)
DX: M16.12 Unilateral primary osteoarthritis, left hip (principal); M87.052 Idiopathic aseptic necrosis of left femur; D62 Acute posthemorrhagic anemia; Z96.641 Presence of right artificial hip joint; I10 Essential (primary) hypertension; Z87.891 Personal history of nicotine dependence
CPT/HCPCS: 36415; 72170; 73502; 85014; 85018; 94762; 97110; 97116; 97162; 97165; 97530; 97535; C1776; C9290; J0171; J0690; J1100; J2250; J2274; J2405; J2704; J3370